=== PATIENT | female | born 1970 | race Caucasian/White ===

== ENCOUNTER 2017-02-07 23:40 | Emergency (ER) | payer SELFPAY ==
[2017-02-08 00:35] VITALS: BP 161/105
[2017-02-08] MEDS ORDERED: traMADol 50 MG Tab PO ONE (00:53)
--- NOTE | 2017-02-08 00:55 | EDM.PDOC ---
ED HPI GENERAL MEDICAL PROBLEM - General Chief Complaint: Lower Extremity Injury/Pain Stated Complaint: RIGHT FOOT/TOE INJURY Time Seen by Provider: 02/07/17 23:54 Source of Information: Reports: Patient, Family (), RN Notes Reviewed History Limitations: Reports: No Limitations - History of Present Illness INITIAL COMMENTS - FREE TEXT/NARRATIVE: The patient states that her stepped on her right fifth toe, while wearing steel toed boots, around 23:15. She was barefoot on a carpet at the time. She presents with pain to the right fifth toe, that radiates up her leg. She is otherwise uninjured. No prior right fifth toe injury. The patient's PCP is Dr. Agnes Puri. She does not have a relationship with an Orthopedic Surgeon. Right 5-Little toe Pain Score (Numeric/FACES): 8 - Related Data Allergies Allergy/AdvReac Type Severity Reaction Status Date / Time hydromorphone HCl Allergy Hives Verified 02/07/17 23:51 [From Dilaudid] meperidine HCl [From Demerol] Allergy Hives Verified 02/07/17 23:51 Home Meds: Home Meds traMADol [Ultram] 50 mg PO Q8H PRN #10 tablet 02/08/17 [Rx] Past Medical History Cardiovascular History: Reports: Hypertension (untreated) Gastrointestinal History: Reports: Bowel Obstruction, GERD Psychiatric History: Reports: Anxiety (untreated), Depression (untreated) Endocrine/Metabolic History: Reports: Obesity/BMI 30+ - Infectious Disease History Infectious Disease History: Reports: Chicken Pox - Past Surgical History GI Surgical History: Reports: Bariatric Procedure, Cholecystectomy, Hernia, Abdominal, Nadine Fundoplication, Other (See Below) (Exploratory laparotomy with lysis of adhesions) Female Surgical History: Reports: Hysterectomy Musculoskeletal Surgical History: Reports: Carpal Tunnel (right), Other (See Below) (Left foot fracture repair) Social & Family History - Tobacco Use Smoking Status *Q: Current Every Day Smoker Years of Tobacco use: 13 Packs/Tins Daily: 1.5 - Caffeine Use Caffeine Use: Reports: Coffee - Alcohol Use Alcohol Use History: Yes Days Per Week of Alcohol Use: 0 Number of Drinks Per Day: 0 Total Drinks Per Week: 0 Alcohol Use Frequency: Rarely - Recreational Drug Use Recreational Drug Use: No - Living Situation & Occupation Living situation: Reports: , with Spouse, with Family (Daughter) 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) Review of Systems - Review of Systems Review Of Systems: See Below Constitutional: Reports: No Symptoms Eyes: Reports: No Symptoms Ears: Reports: No Symptoms Nose: Reports: No Symptoms Mouth/Throat: Reports: No Symptoms Respiratory: Reports: No Symptoms Cardiovascular: Reports: No Symptoms GI/Abdominal: Reports: No Symptoms Genitourinary: Reports: No Symptoms Musculoskeletal: Reports: No Symptoms Skin: Reports: No Symptoms Neurological: Reports: No Symptoms Psychiatric: Reports: No Symptoms ED EXAM, GENERAL - Physical Exam Exam: See Below Exam Limited By: No Limitations General Appearance: Alert, WD/WN, No Apparent Distress, Mild Distress Extremities: Other (No visible abnormality to the right fifth toe, such as swelling, erythema, abrasion, or ecchymosis, when compared to the left. There is tenderness to palpation of the toe. Neurovascular status of the right foot is intact.) Course - Vital Signs Last Recorded V/S: Last Vital Signs Temp 36.2 C 02/07/17 23:45 Pulse 88 02/07/17 23:45 Resp 20 02/07/17 23:45 BP 161/105 H 02/07/17 23:45 Pulse Ox 100 02/07/17 23:45 - Orders/Labs/Meds Orders: Active Orders 24 hr Category Date Time Status Toes Fifth Digit Rt T9 [CR] Stat Exams 02/08/17 00:23 Taken DME for Discharge [COMM] Stat Oth 02/08/17 00:53 Ordered Meds: Medications Discontinued Medications Generic Name Dose Route Start Last Admin Trade Name Puma PRN Reason Stop Dose Admin Tramadol HCl 50 mg 02/08/17 00:53 02/08/17 01:04 Ultram PO 02/08/17 00:54 50 mg ONETIME ONE Administration - Re-Assessments/Exams Free Text/Narrative Re-Assessment/Exam: 02/08/17 00:50 4-view radiographs of the right fifth toe appears to demonstrate a minimally displaced mid-shaft fracture of the proximal phalanx. Formal read per the Radiologist pending. 02/08/17 00:55 X-ray results discussed with the patient and her . I will have her fifth toe maris taped to the fourth, and fit her for a postop shoe. She will receive tramadol, and I will refer her to Dr. Wahl for follow-up. Departure - Departure Time of Disposition: 00:56 Disposition: Home, Self-Care 01 Condition: Fair Clinical Impression: Fracture of fifth toe, right, closed - Discharge Information Prescriptions: traMADol [Ultram] 50 mg PO Q8H PRN #10 tablet PRN Reason: Pain (Severe 7-10) Instructions: Toe Fracture, [id number] Referrals: Agnes Puri DO [Primary Care Provider] - Brayan Wahl MD [Physician] - Forms: ED Department Discharge, ED Return to Work/School Form Additional Instructions: You were seen in the emergency room for right pinky toe pain, after your stepped on it. Workup in the ER included x-rays of your toe. The x-rays show that your toe is broken. Your toe has been maris taped, and you have been fitted for a postop shoe. Replace the maris tape every time you bathe. Make sure that you put some gauze or padding in between your toes, so that they do not chafe. Continue to use the postop shoe, so long as your toe is painful. Elevate and ice your right foot as much as possible for the next 48 hours. Take [id number] Tylenol as needed for pain. Take one tablet of the pain medicine tramadol up to every 8 hours, as needed for pain not relieved by Tylenol. If you take tramadol, do not drive for 12 hours afterwards. Tramadol may cause constipation, so consider taking a stool softener. Follow-up with the Orthopedic Surgeon Dr. Wahl as needed. If any other problems, please do not hesitate to return to the ER. - My Orders Last 24 Hours: My Active Orders 02/08/17 00:23 Toes Fifth Digit Rt T9 [CR] Stat 02/08/17 00:53 DME for Discharge [COMM] Stat - Assessment/Plan Last 24 Hours: My Active Orders 02/08/17 00:23 Toes Fifth Digit Rt T9 [CR] Stat 02/08/17 00:53 DME for Discharge [COMM] Stat
--- NOTE | 2017-02-08 07:17 | CR ---
Right fifth toe: Four views of the right fifth toe are obtained. Mildly angulated fracture is identified within the proximal phalanx of the right fifth digit. No additional fracture or other abnormality is seen. Impression: 1. Slightly angulated proximal phalanx fracture involving the right fifth toe. Diagnostic code #3
== END 2017-02-08 01:22 | disposition home or self-care (01) ==
LOC: JD.ED 23:40
DX: S92.511A Displaced fracture of proximal phalanx of right lesser toe(s), initial encounter for closed fracture (principal); I10 Essential (primary) hypertension; F17.210 Nicotine dependence, cigarettes, uncomplicated; Z90.49 Acquired absence of other specified parts of digestive tract; Z88.5 Allergy status to narcotic agent; W51.XXXA Accidental striking against or bumped into by another person, initial encounter
CPT/HCPCS: 73660; 99283; A9270

== ENCOUNTER 2017-02-12 00:56 | Emergency (ER) | payer SELFPAY ==
[2017-02-12 01:08] VITALS: BP 156/107
--- NOTE | 2017-02-12 01:41 | EDM.PDOC ---
ED HPI GENERAL MEDICAL PROBLEM - General Chief Complaint: Lower Extremity Injury/Pain Stated Complaint: INJURED RIGHT FOOT Time Seen by Provider: 02/12/17 01:06 Source of Information: Reports: Patient, Family (), Old Records, RN Notes Reviewed History Limitations: Reports: No Limitations - History of Present Illness INITIAL COMMENTS - FREE TEXT/NARRATIVE: The patient was seen by me in this ED on 02/08/2017 after her stepped on her right fifth toe. X-rays showed that there was a proximal phalanx fracture. Her toe was maris taped, she was placed into a postop shoe, prescribed tramadol , and referred to Dr. Wahl. She states that she has been continuing to maris tape her toe and use the postop shoe, however, she has not yet made arrangements to follow-up with Dr. Wahl. She states that earlier tonight her garage door accidentally came down onto the dorsum of her right foot. She now presents with pain along the lateral aspect of her foot. She is otherwise uninjured. Right Feet Pain Score (Numeric/FACES): 7 - Related Data Allergies Allergy/AdvReac Type Severity Reaction Status Date / Time hydromorphone HCl Allergy Hives Verified 02/12/17 01:05 [From Dilaudid] meperidine HCl [From Demerol] Allergy Hives Verified 02/12/17 01:05 Home Meds: Home Meds traMADol [Ultram] 50 mg PO Q8H PRN #10 tablet 02/08/17 [Rx] Past Medical History Cardiovascular History: Reports: Hypertension (untreated) Gastrointestinal History: Reports: Bowel Obstruction, GERD Musculoskeletal History: Reports: Fracture (Left foot, Right 5th toe) Psychiatric History: Reports: Anxiety (untreated), Depression (untreated) Endocrine/Metabolic History: Reports: Obesity/BMI 30+ - Infectious Disease History Infectious Disease History: Reports: Chicken Pox - Past Surgical History GI Surgical History: Reports: Bariatric Procedure, Cholecystectomy, Hernia, Abdominal, Nadine Fundoplication, Other (See Below) (Exploratory laparotomy with lysis of adhesions) Female Surgical History: Reports: Hysterectomy Musculoskeletal Surgical History: Reports: Carpal Tunnel (right), Other (See Below) (Left foot fracture repair) Social & Family History - Tobacco Use Smoking Status *Q: Current Every Day Smoker Years of Tobacco use: 13 Packs/Tins Daily: 1.5 - Caffeine Use Caffeine Use: Reports: Coffee - Alcohol Use Alcohol Use History: Yes Alcohol Use Frequency: Rarely - Recreational Drug Use Recreational Drug Use: No - Living Situation & Occupation Living situation: Reports: , with Spouse, with Family (Daughter) 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) Review of Systems - Review of Systems Review Of Systems: See Below Constitutional: Reports: No Symptoms Eyes: Reports: No Symptoms Ears: Reports: No Symptoms Nose: Reports: No Symptoms Mouth/Throat: Reports: No Symptoms Respiratory: Reports: No Symptoms Cardiovascular: Reports: No Symptoms GI/Abdominal: Reports: No Symptoms Genitourinary: Reports: No Symptoms Musculoskeletal: Reports: No Symptoms Skin: Reports: No Symptoms Neurological: Reports: No Symptoms Psychiatric: Reports: No Symptoms ED EXAM, GENERAL - Physical Exam Exam: See Below Exam Limited By: No Limitations General Appearance: Alert, WD/WN, No Apparent Distress Extremities: Other (No visible abnormality to the right foot, such as swelling, erythema, ecchymosis, or abrasion, with the exception of subtle swelling to the right fifth toe. Mild tenderness to palpation of the lateral foot. Neurovascular status of the right foot is intact.) Course - Vital Signs Last Recorded V/S: Last Vital Signs Temp 36.6 C 02/12/17 01:06 Pulse 96 02/12/17 01:06 Resp 18 02/12/17 01:06 BP 156/107 H 02/12/17 01:06 Pulse Ox 97 02/12/17 01:06 - Orders/Labs/Meds Orders: Active Orders 24 hr Category Date Time Status Foot Comp Min 3V Rt [CR] Stat Exams 02/12/17 01:08 Taken - Re-Assessments/Exams Free Text/Narrative Re-Assessment/Exam: 02/12/17 01:38 4-view radiographs of the right foot appear to redemonstrate the previous he diagnosed right fifth toe fracture no additional foot fractures identified. Formal read per the Radiologist pending. X-ray results discussed with the patient and her . I will discharge the patient home with a recommendation that she continue to maris tape her right fifth toe, where the postop shoe, and follow-up with Dr. Wahl as needed. I am recommending ibuprofen as needed for discomfort. Departure - Departure Time of Disposition: 01:39 Disposition: Home, Self-Care 01 Condition: Good Clinical Impression: Contusion of right foot - Discharge Information Referrals: Agnes Puri DO [Primary Care Provider] - Brayan Wahl MD [Physician] - Forms: ED Department Discharge Additional Instructions: You were seen in the emergency room after a garage door came down on your right foot. X-rays of your foot redemonstrate your broken pinky toe, but do not show any new fractures. As before, we recommend that you maris tape your right pinky toe to your right fourth toe, making sure that you put some gauze in between the toes. Continue to wear the postop shoe. You may take [id number] ibuprofen 3-4 (600-800 mg) every 8 hours, with food, as needed for discomfort. Follow-up with the Orthopedic Surgeon Dr. Wahl as needed. If any other problems, please do not hesitate to return to the ER. - My Orders Last 24 Hours: My Active Orders 02/12/17 01:08 Foot Comp Min 3V Rt [CR] Stat - Assessment/Plan Last 24 Hours: My Active Orders 02/12/17 01:08 Foot Comp Min 3V Rt [CR] Stat
--- NOTE | 2017-02-12 07:44 | CR ---
Right foot: Four views of the right foot were obtained. Comparison: Previous right fifth toe study of 02/08/17. Plantar spur is seen. Fracture is again identified within the proximal phalanx of the fifth digit. Alignment is stable. No additional fracture or other bony abnormality is seen. Impression: 1. Stable fifth toe fracture. Plantar spur. 2. No additional abnormality is identified on right foot exam. Diagnostic code #3
== END 2017-02-12 01:57 | disposition home or self-care (01) ==
LOC: JD.ED 00:56
DX: S90.31XA Contusion of right foot, initial encounter (principal); I10 Essential (primary) hypertension; K21.9 Gastro-esophageal reflux disease without esophagitis; E66.9 Obesity, unspecified; F17.210 Nicotine dependence, cigarettes, uncomplicated; Z88.5 Allergy status to narcotic agent; Z90.710 Acquired absence of both cervix and uterus; Z90.49 Acquired absence of other specified parts of digestive tract; Z68.42 Body mass index [BMI] 45.0-49.9, adult; Z88.8 Allergy status to other drugs, medicaments and biological substances; W20.8XXA Other cause of strike by thrown, projected or falling object, initial encounter
CPT/HCPCS: 73630-26-RT; 73630-RT; 99282; 99283

== ENCOUNTER 2017-03-18 21:10 | Emergency (ER) | payer SELFPAY ==
--- NOTE | 2017-03-18 22:03 | EDM.PDOC ---
ED HPI GENERAL MEDICAL PROBLEM - General Chief Complaint: Chest Pain Stated Complaint: HIGH BLOOD PRESSURE/TIGHTNESS IN CHEST Time Seen by Provider: 03/18/17 22:02 - History of Present Illness INITIAL COMMENTS - FREE TEXT/NARRATIVE: 47-year-old female presents emergency room not feeling well she has some intermittent chest tightness. This is been going on for close to 2 weeks she has no energy her blood pressures been higher than normal with systolics in the 140s and 150s she's noticed lower extremity edema. The patient needs to be treated for hypertension but is no longer taking any medications. She has intermittent chest pain that usually brief and sharp usually triggered by deep breathing. The patient has not noticed any palpitations. The patient had gastric bypass surgery many years ago. She is still morbidly obese but has never been diagnosed with diabetes. She does not take aspirin. Her chest pain usually starts behind the left breast is very transient and shoots into her back last a few seconds. 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) Other OB/BYN History: breast reduction Musculoskeletal History: Reports: Fracture Psychiatric History: Reports: Anxiety, Depression Endocrine/Metabolic History: Reports: Obesity/BMI 30+ - Infectious Disease History Infectious Disease History: Reports: Chicken Pox - Past Surgical History GI Surgical History: Reports: Bariatric Procedure, Cholecystectomy, Hernia, Abdominal, Nadine Fundoplication, Other (See Below) Female Surgical History: Reports: Hysterectomy Musculoskeletal Surgical History: Reports: Carpal Tunnel, Other (See Below) Social & Family History - Tobacco Use Smoking Status *Q: Former Smoker Years of Tobacco use: 13 Packs/Tins Daily: 1.5 Used Tobacco, but Quit: Yes Month Tobacco Last Used: 01/2017 Second Hand Smoke Exposure: No - Caffeine Use Caffeine Use: Reports: None - Alcohol Use Days Per Week of Alcohol Use: 0 Number of Drinks Per Day: 0 Total Drinks Per Week: 0 - Recreational Drug Use Recreational Drug Use: No Drug Use in Last 12 Months: No - Living Situation & Occupation Living situation: Reports: , with Spouse, with Family (Daughter) 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 Denies: Fever, Chills HEENT: Reports: No Symptoms Respiratory: Reports: No Symptoms Cardiovascular: Reports: Chest Pain GI/Abdominal: Reports: No Symptoms : Reports: No Symptoms Neurological: Reports: No Symptoms ED EXAM, GENERAL - Physical Exam Exam: See Below Exam Limited By: No Limitations General Appearance: Alert, No Apparent Distress Head: Atraumatic, Normocephalic Neck: Normal Inspection, Supple, Non-Tender, Full Range of Motion. No: Lymphadenopathy (L), Lymphadenopathy (R) Respiratory/Chest: No Respiratory Distress, Lungs Clear, Normal Breath Sounds Cardiovascular: Regular Rate, Rhythm, No Murmur, Other (1-2+ pitting edema in her lower extremities) GI/Abdominal: Normal Bowel Sounds, Soft, Non-Tender, No Organomegaly, No Distention, No Abnormal Bruit, No Mass, Other (Obesity limits exam) Back Exam: Normal Inspection. No: CVA Tenderness (L), CVA Tenderness (R) Extremities: Normal Inspection, Other (1-2+ pitting edema) Neurological: Alert, Oriented, Normal Cognition Course - Vital Signs Last Recorded V/S: Last Vital Signs Temp 36.2 C 03/18/17 21:20 Pulse 77 03/18/17 22:36 Resp 20 03/18/17 21:20 BP 156/106 H 03/18/17 22:36 Pulse Ox 99 03/18/17 21:20 - Orders/Labs/Meds Orders: Active Orders 24 hr Category Date Time Status EKG Documentation Completion [RC] STAT Care 03/18/17 22:24 Active Chest 1V Frontal [CR] Stat Exams 03/18/17 22:23 Taken Sodium Chloride 0.9% [Normal Saline] 1,000 ml Med 03/18/17 22:30 Active IV ASDIRECTED Medication Orders Sodium Chloride (Normal Saline) 1,000 mls @ 50 mls/hr IV ASDIRECTED ARNAV Last Admin: 03/18/17 22:40 Dose: 50 mls/hr Labs: Laboratory Tests 03/18/17 03/18/17 03/18/17 Range/Units 21:25 21:25 21:25 WBC 7.58 (3.98-10.04) K/mm3 RBC 3.94 L (3.98-5.22) M/mm3 Hgb 11.1 L (11.2-15.7) gm/L Hct 33.9 L (34.1-44.9) % MCV 86.0 (79.4-94.8) fl MCH 28.2 (25.6-32.2) pg MCHC 32.7 (32.2-35.5) g/dl RDW Std Deviation 45.5 (36.4-46.3) fL Plt Count 289 (182-369) K/mm3 MPV 10.4 (9.4-12.3) fl Neutrophils % (Manual) 61 H (40-60) % Band Neutrophils % 0 (0-10) % Lymphocytes % (Manual) 30 (20-40) % Atypical Lymphs % 0 % Monocytes % (Manual) 7 (2-10) % Eosinophils % (Manual) 2 (0.7-5.8) % Basophils % (Manual) 0 L (0.1-1.2) Platelet Estimate Adequate RBC Morph Comment Normal PT 10.3 (8.0-13.0) SECONDS INR 0.95 APTT 25 (22-36) SECONDS Sodium 138 (136-145) mEq/L Potassium 4.0 (3.5-5.1) mEq/L Chloride 105 (98-107) mEq/L Carbon Dioxide 27 (21-32) mEq/L Anion Gap 10.0 (5-15) BUN 10 (7-18) mg/dL Creatinine 0.7 (0.55-1.02) mg/dL Est Cr Clr Drug Dosing 86.72 mL/min Estimated GFR (MDRD) > 60 (>60) mL/min BUN/Creatinine Ratio 14.3 (14-18) Glucose 84 (74-106) mg/dL Calcium 8.9 (8.5-10.1) mg/dL Total Bilirubin 0.2 (0.2-1.0) mg/dL AST 24 (15-37) U/L ALT 21 (14-59) U/L Alkaline Phosphatase 80 (46-116) U/L Troponin I 0.222 H* (0.00-0.056) ng/mL NT-Pro-B Natriuret Pep 289 H (0-125) pg/mL Total Protein 7.1 (6.4-8.2) g/dl Albumin 3.7 (3.4-5.0) g/dl Globulin 3.4 gm/dL Albumin/Globulin Ratio 1.1 (1-2) Meds: Medications Generic Name Dose Route Start Last Admin Trade Name Freq PRN Reason Stop Dose Admin Sodium Chloride 1,000 mls @ 50 mls/hr 03/18/17 22:30 03/18/17 22:40 Normal Saline IV 50 mls/hr ASDIRECTED ARNAV Administration Discontinued Medications Generic Name Dose Route Start Last Admin Trade Name Freq PRN Reason Stop Dose Admin Aspirin 324 mg 03/18/17 22:25 03/18/17 22:36 Aspirin PO 03/18/17 22:26 324 mg ONETIME ONE Administration Enoxaparin Sodium 120 mg 03/18/17 23:46 03/18/17 23:59 Lovenox SUBCUT 03/18/17 23:47 120 mg ONETIME ONE Administration Metoprolol Tartrate 25 mg 03/18/17 22:25 03/18/17 22:36 Lopressor PO 03/18/17 22:26 25 mg ONETIME ONE Administration Nitroglycerin 1 gm 03/19/17 00:07 03/19/17 00:22 Nitro-Bid 2% TOP 03/19/17 00:08 1 gm ONETIME ONE Administration Nitroglycerin 1 gm 03/19/17 00:58 03/19/17 01:05 Nitro-Bid 2% TOP 03/19/17 00:59 1 gm ONETIME ONE Administration - Re-Assessments/Exams Free Text/Narrative Re-Assessment/Exam: 03/19/17 00:25 Labs reviewed troponin came back elevated at 0.22-4 times are printed normal this is suspicious of a past [place] BNP is elevated at just under 300 chest x-ray shows a borderline enlarged heart early or mild vascular congestion versus body habitus. Upon receiving the troponin the patient was started on Lovenox and metoprolol will also start her on nitro paste. Patient's case discussed with , hospitalist at [facility] in [place] who accepts the patient in transfer Departure - Departure Time of Disposition: 00:27 Disposition: DC/Tfer to Acute Hospital 02 Reason for Transfer *Q: Other Clinical Impression: Acute coronary syndrome, NSTEMI (non-ST elevated myocardial infarction) Referrals: Agnes Puri DO [Primary Care Provider] - Forms: ED Department Discharge - My Orders Last 24 Hours: My Active Orders 03/18/17 22:23 Chest 1V Frontal [CR] Stat 03/18/17 22:24 EKG Documentation Completion [RC] STAT 03/18/17 22:30 Sodium Chloride 0.9% [Normal Saline] 1,000 ml IV ASDIRECTED - Assessment/Plan Last 24 Hours: My Active Orders 03/18/17 22:23 Chest 1V Frontal [CR] Stat 03/18/17 22:24 EKG Documentation Completion [RC] STAT 03/18/17 22:30 Sodium Chloride 0.9% [Normal Saline] 1,000 ml IV ASDIRECTED
[2017-03-18] MEDS ORDERED: Metoprolol Tartrate 25 MG Tab PO ONE (22:25)
[2017-03-18] MEDS ORDERED: Aspirin 81 MG Tab.Chew PO ONE (22:25)
[2017-03-18] MEDS ORDERED: Sodium Chloride 0.9% 1,000 ML IV SCH (22:30)
[2017-03-18 22:37] VITALS: BP 156/106
[2017-03-18] MEDS ORDERED: Enoxaparin 120 MG/0.8 ML Syringe SUBCUT ONE (23:46)
[2017-03-19] MEDS ORDERED: Nitroglycerin 2% Oint 1 GM UD Packet TOP ONE ×2 (00:07→00:58)
--- NOTE | 2017-03-19 07:19 | CR ---
Chest: Portable view of the chest was obtained. Comparison: Previous chest x-ray of 09/20/15. Heart size and mediastinum are within normal limits. Lungs are clear. No acute infiltrates are seen. Bony structures are grossly intact. Surgical clips are noted within the upper abdomen. Impression: 1. Incidental findings. Nothing acute is identified on portable chest x-ray. Diagnostic code #2
== END 2017-03-19 01:25 ==
LOC: JD.ED 21:10
DX: I21.4 Non-ST elevation (NSTEMI) myocardial infarction (principal); I24.9 Acute ischemic heart disease, unspecified; I10 Essential (primary) hypertension; K21.9 Gastro-esophageal reflux disease without esophagitis; F32.9 Major depressive disorder, single episode, unspecified; E66.9 Obesity, unspecified; Z90.49 Acquired absence of other specified parts of digestive tract; Z90.710 Acquired absence of both cervix and uterus; Z98.890 Other specified postprocedural states; Z98.84 Bariatric surgery status; Z87.891 Personal history of nicotine dependence; Z88.5 Allergy status to narcotic agent; Z88.6 Allergy status to analgesic agent
CPT/HCPCS: 36415; 71010; 80053; 83880; 84484; 85025; 85610; 85730; 93005; 96360; 96361; 96372; 99285; A9270; J1650; J7040

== ENCOUNTER 2017-04-28 00:52 | Emergency (ER) | payer SELFPAY ==
[2017-04-28 01:02] VITALS: BP 147/95
--- NOTE | 2017-04-28 01:30 | EDM.PDOC ---
ED HPI GENERAL MEDICAL PROBLEM - General Chief Complaint: General Stated Complaint: VEIN BURST IN RIGHT LEG Time Seen by Provider: 04/28/17 01:05 Source of Information: Reports: Patient, RN Notes Reviewed History Limitations: Reports: No Limitations - History of Present Illness INITIAL COMMENTS - FREE TEXT/NARRATIVE: The patient states that she has a long history of varicose veins to her bilateral lower extremities. She states that she was picking at an itchy spot on the lateral aspect of her right thigh without thinking, when she apparently lacerated one of the varicose veins, and it bled, around 00:30. She states that she was unable to get it to stop, however, here in the ED, the wound is no longer bleeding. The patient is on aspirin, but no other anticoagulants. The patient states that she had a similar occurrence this past summer, she believes in the same area. She states that the wound required suturing to stop the bleeding. The patient's PCP is Dr. Agnes Puri. - Related Data Allergies Allergy/AdvReac Type Severity Reaction Status Date / Time hydromorphone HCl Allergy Hives Verified 04/28/17 01:02 [From Dilaudid] meperidine HCl [From Demerol] Allergy Hives Verified 04/28/17 01:02 Past Medical History Cardiovascular History: Reports: CAD, Hypertension, [place] Gastrointestinal History: Reports: Bowel Obstruction, GERD Musculoskeletal History: Reports: Fracture (left foot, right 5th toe) Psychiatric History: Reports: Anxiety (untreated), Depression (untreated) Endocrine/Metabolic History: Reports: Obesity/BMI 30+ - Infectious Disease History Infectious Disease History: Reports: Chicken Pox - Past Surgical History Cardiovascular Surgical History: Reports: Other (See Below) (Coronary angiogram February 2017) GI Surgical History: Reports: Bariatric Procedure (gastric bypass 2000), Cholecystectomy, Hernia, Abdominal, Nadine Fundoplication, Other (See Below) ( Exploratory laparoscopy with lysis of adhesions) Female Surgical History: Reports: Hysterectomy Musculoskeletal Surgical History: Reports: Carpal Tunnel (right), Other (See Below) (Left foot fracture) Social & Family History - Tobacco Use Smoking Status *Q: Former Smoker Years of Tobacco use: 24 Packs/Tins Daily: 1.5 Month Tobacco Last Used: Quit February 2017 Second Hand Smoke Exposure: No - Caffeine Use Caffeine Use: Reports: None - Alcohol Use Alcohol Use History: Yes Alcohol Use Frequency: Rarely - Recreational Drug Use Recreational Drug Use: No - Living Situation & Occupation Living situation: Reports: , with Spouse, with Family (Daughter) 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 GENERAL - Review of Systems Review Of Systems: See Below Constitutional: Reports: No Symptoms HEENT: Reports: No Symptoms Respiratory: Reports: No Symptoms Cardiovascular: Reports: No Symptoms Endocrine: Reports: No Symptoms GI/Abdominal: Reports: No Symptoms : Reports: No Symptoms Musculoskeletal: Reports: No Symptoms Skin: Reports: No Symptoms Neurological: Reports: No Symptoms Psychiatric: Reports: No Symptoms Hematologic/Lymphatic: Reports: No Symptoms Immunologic: Reports: No Symptoms ED EXAM, GENERAL - Physical Exam Exam: See Below Exam Limited By: No Limitations General Appearance: Alert, WD/WN, No Apparent Distress Skin Exam: Warm, Dry, Normal Color, No Rash, Other (Numerous varicose veins to the bilateral lower extremities. 2 small erythematous lesions to the lateral aspect of the right mid-thigh, not currently bleeding.) Course - Vital Signs Last Recorded V/S: Last Vital Signs Temp 36.0 C 04/28/17 00:58 Pulse 80 04/28/17 00:58 Resp 18 04/28/17 00:58 BP 147/95 H 04/28/17 00:58 Pulse Ox 100 04/28/17 00:58 - Re-Assessments/Exams Free Text/Narrative Re-Assessment/Exam: 04/28/17 01:25 The patient has numerous superficial varicose veins to her bilateral lower extremities. She apparently nicked one while scratching her thigh earlier tonight. The bleeding has stopped, and we were not able to cause it to restart, even when the patient flexed her right knee, putting some tension on her right thigh. I believe conservative management would be best in this case. I will have the nurse apply a pressure dressing, which I would like patient to keep overnight, then she can remove it in the morning when she bathes. Departure - Departure Time of Disposition: 01:27 Disposition: Home, Self-Care 01 Condition: Good Clinical Impression: Bleeding from varicose veins of right lower extremity - Discharge Information Instructions: Bleeding Varicose Veins Referrals: Agnes Puri DO [Primary Care Provider] - Forms: ED Department Discharge Additional Instructions: You were seen in the emergency room after accidentally cutting a varicose vein on your right thigh when you scratched it. The bleeding had stopped on its own, therefore no further treatment was required. A pressure dressing has been applied to the wound. Keep it on overnight. It can be removed when you bathe in the morning. If any other problems, please do not hesitate to return to the ER.
== END 2017-04-28 01:44 | disposition home or self-care (01) ==
LOC: JD.ED 00:52
DX: I83.891 Varicose veins of right lower extremity with other complications (principal); I10 Essential (primary) hypertension; I25.2 Old myocardial infarction; K21.9 Gastro-esophageal reflux disease without esophagitis; E66.9 Obesity, unspecified; Z88.5 Allergy status to narcotic agent; Z88.8 Allergy status to other drugs, medicaments and biological substances; Z87.891 Personal history of nicotine dependence; Z68.42 Body mass index [BMI] 45.0-49.9, adult
CPT/HCPCS: 99283

== ENCOUNTER 2017-05-05 02:15 | Emergency (ER) | payer SELFPAY ==
[2017-05-05 02:28] VITALS: BP 133/96
[2017-05-05] MEDS ORDERED: Lidocaine/EPINEPHrine/Tetracaine Soln 1 ML TOP ONE (02:41)
--- NOTE | 2017-05-05 02:54 | EDM.PDOC ---
ED HPI GENERAL MEDICAL PROBLEM - General Chief Complaint: Lower Extremity Injury/Pain Stated Complaint: POSS VEIN RUPTURE ON LEG Time Seen by Provider: 05/05/17 02:34 Source of Information: Reports: Patient History Limitations: Reports: No Limitations - History of Present Illness INITIAL COMMENTS - FREE TEXT/NARRATIVE: This is a 47-year-old female. She has multiple varicose veins of her lower extremities. About 7 days ago she came in here with a bleeding varicose vein that essentially stopped by the time she got here but they put her pressure dressing over it. She says she took the dressing off and the vein started bleeding again around 2 AM so she comes back to the ER. She is now follow-up with her family doctor she's not seen a surgeon for varicose veins. She denies any other acute symptoms she does take aspirin daily but no other anticoagulants. Right Leg Pain Score (Numeric/FACES): 3 - Related Data Allergies Allergy/AdvReac Type Severity Reaction Status Date / Time hydromorphone HCl Allergy Hives Verified 05/05/17 02:21 [From Dilaudid] meperidine HCl [From Demerol] Allergy Hives Verified 05/05/17 02:21 Home Meds: Home Meds Albuterol [Proventil HFA] 2 puff INH DAILY PRN 05/05/17 [History] Aspirin 81 mg PO DAILY 05/05/17 [History] LORazepam 1 mg PO DAILY 05/05/17 [History] Lisinopril 20 mg PO DAILY 05/05/17 [History] Meloxicam 15 mg PO DAILY 05/05/17 [History] Metoprolol Succinate [Toprol XL] 25 mg PO DAILY 05/05/17 [History] Sertraline [Zoloft] 100 mg PO DAILY 05/05/17 [History] atorvaSTATin [Lipitor] 40 mg PO BEDTIME 05/05/17 [History] Past Medical History - Past Health History Medical/Surgical History: Denies Medical/Surgical History Cardiovascular History: Reports: CAD, Hypertension, [place] Gastrointestinal History: Reports: Bowel Obstruction, GERD 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) Other OB/BYN History: breast reduction Musculoskeletal History: Reports: Fracture Psychiatric History: Reports: Anxiety, Depression Endocrine/Metabolic History: Reports: Obesity/BMI 30+ - Infectious Disease History Infectious Disease History: Reports: Chicken Pox - Past Surgical History Cardiovascular Surgical History: Reports: Other (See Below) GI Surgical History: Reports: Bariatric Procedure, Cholecystectomy, Hernia, Abdominal, Nadine Fundoplication, Other (See Below) Female Surgical History: Reports: Hysterectomy Musculoskeletal Surgical History: Reports: Carpal Tunnel, Other (See Below) Social & Family History - Tobacco Use Smoking Status *Q: Former Smoker Years of Tobacco use: 24 Packs/Tins Daily: 1.5 Used Tobacco, but Quit: Yes Month Tobacco Last Used: february Second Hand Smoke Exposure: No - Caffeine Use Caffeine Use: Reports: Coffee, Soda - Alcohol Use Days Per Week of Alcohol Use: 0 Number of Drinks Per Day: 0 Total Drinks Per Week: 0 - Recreational Drug Use Recreational Drug Use: No Drug Use in Last 12 Months: No - Living Situation & Occupation Living situation: Reports: , with Spouse, with Family (Daughter) 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) Review of Systems - Review of Systems Review Of Systems: See Below Constitutional: Denies: Chills, Fever Eyes: Reports: No Symptoms Ears: Reports: No Symptoms Nose: Reports: No Symptoms Mouth/Throat: Reports: No Symptoms Respiratory: Reports: No Symptoms Cardiovascular: Reports: No Symptoms GI/Abdominal: Reports: No Symptoms Genitourinary: Reports: No Symptoms Musculoskeletal: Reports: No Symptoms Skin: Reports: Other (As per history of present illness) Neurological: Reports: No Symptoms Psychiatric: Reports: No Symptoms ED EXAM, GENERAL - Physical Exam Exam: See Below Exam Limited By: No Limitations General Appearance: Alert, WD/WN, No Apparent Distress Ears: Normal External Exam Nose: Normal Inspection Throat/Mouth: Normal Inspection Head: Normocephalic Neck: Supple Respiratory/Chest: No Respiratory Distress GI/Abdominal: Other (Morbidly obese) Back Exam: Full Range of Motion Extremities: Other (On her right lateral mid thigh is the varicose vein in question that is bleeding or was bleeding. The bleeding is stopped at this time and she has a small coagulant of blood over the opening) Neurological: Alert, Oriented Psychiatric: Normal Affect, Normal Mood Skin Exam: Warm, Dry ED TRAUMA EXTREMITY PROCEDURES - Additional/Other Procedure(s) Other (Free Text) Procedure(s): On the patient's right lateral mid thigh on the 2 areas of the bleeding varicose vein. We placed let over those 2 wounds. Then I cleaned 3 times with Betadine swabs. I injected lidocaine 1% with epinephrine and blanched out the vein so I could tell which ones connected to the bleeding spots. Then I put in 3 deep sutures ligating off the veins to these 2 bleeding sites with 3-0 Prolene. The patient tolerated the procedure well there was no bleeding after the procedure, she was cleaned and a dressing was placed over that area. She needs to have the sutures out in 7 days and I'll refer her to a surgeon. No suture tray was needed with this procedure. Course - Vital Signs Last Recorded V/S: Last Vital Signs Temp 97.8 F 05/05/17 02:22 Pulse 93 05/05/17 02:22 Resp 18 05/05/17 02:22 BP 133/96 H 05/05/17 02:22 Pulse Ox 100 05/05/17 02:22 - Orders/Labs/Meds Meds: Medications Discontinued Medications Generic Name Dose Route Start Last Admin Trade Name Puma PRN Reason Stop Dose Admin Lidocaine/Epinephrine 20 ml 05/05/17 03:08 05/05/17 03:22 Xylocaine 1% With Epinephrine 1:100,000 INJECT 05/05/17 03:09 20 ml ONETIME ONE Administration Lidocaine/Tetracaine 1 ml 05/05/17 02:41 05/05/17 02:48 Let Soln TOP 05/05/17 02:42 1 ml ONETIME ONE Administration - Re-Assessments/Exams Free Text/Narrative Re-Assessment/Exam: 05/05/17 03:25 Patient tolerated the procedure well there was no bleeding after the surgical ligation sutures were placed 3 Departure - Departure Time of Disposition: 03:25 Disposition: Home, Self-Care 01 Condition: Good Clinical Impression: Bleeding from varicose veins of right lower extremity - Discharge Information Referrals: Agnes Puri DO [Primary Care Provider] - Raffi Nunez MD [Physician] - Forms: ED Department Discharge Additional Instructions: Keep the sutures covered when you're at work and at nighttime when sleeping, follow-up with Dr. Nunez by calling his office on Saturday and setting up an appointment approximately 7 days from Saturday to have the sutures removed and for evaluation of the other varicose veins that you have, return to the ER if needed
[2017-05-05] MEDS ORDERED: Lidocaine 1% with EPINEPHrine 1:100,000 20 ML MDV INJECT ONE (03:08)
== END 2017-05-05 03:30 | disposition home or self-care (01) ==
LOC: JD.ED 02:15
DX: I82.401 Acute embolism and thrombosis of unspecified deep veins of right lower extremity (principal); I10 Essential (primary) hypertension; Z88.5 Allergy status to narcotic agent; Z88.8 Allergy status to other drugs, medicaments and biological substances; Z79.82 Long term (current) use of aspirin; Z79.899 Other long term (current) drug therapy; Z87.891 Personal history of nicotine dependence
CPT/HCPCS: 12001; 99283; A9270

== ENCOUNTER 2017-05-12 11:09 | Emergency (ER) | payer SELFPAY ==
[2017-05-12 11:16] VITALS: BP 144/86
[2017-05-12] MEDS ORDERED: diphenhydrAMINE 50 MG/ML SDV IM ONE (11:43)
[2017-05-12] MEDS ORDERED: Ketorolac 30 MG/ML SDV IM ONE (11:43)
--- NOTE | 2017-05-12 12:33 | EDM.PDOC ---
ED HPI GENERAL MEDICAL PROBLEM - General Chief Complaint: ENT Problem Stated Complaint: EYE SWELLING Time Seen by Provider: 05/12/17 11:52 Source of Information: Reports: Patient History Limitations: Reports: No Limitations - History of Present Illness INITIAL COMMENTS - FREE TEXT/NARRATIVE: 47 year old female presents for evaluation and treatment of bilateral eye swelling. Symptoms started about 1 hours prior to arrival in the ER. Patient presented to the walk-in clinic where she was instructed to come to the ER for further care. Patient reports pressures behind her eyes but states her eyes themselves don't hurt. Patient reports blurry vision but no double vision. Patient states she is experiencing headaches. No nausea or vomiting. She also reports a dry, scratchy throat but denies any additional allergy symptoms. Patient is suppose to wear glasses but does not have them today. Does not wear contacts. Patient reports she took aspirin today for pain relief. Bilateral Eye Pain Score (Numeric/FACES): 3 - Related Data Allergies Allergy/AdvReac Type Severity Reaction Status Date / Time hydromorphone HCl Allergy Hives Verified 05/12/17 11:16 [From Dilaudid] meperidine HCl [From Demerol] Allergy Hives Verified 05/12/17 11:16 Home Meds: Home Meds Albuterol [Proventil HFA] 2 puff INH DAILY PRN 05/05/17 [History] Aspirin 81 mg PO DAILY 05/05/17 [History] LORazepam 1 mg PO DAILY 05/05/17 [History] Lisinopril 20 mg PO DAILY 05/05/17 [History] Meloxicam 15 mg PO DAILY 05/05/17 [History] Metoprolol Succinate [Toprol XL] 25 mg PO DAILY 05/05/17 [History] Sertraline [Zoloft] 100 mg PO DAILY 05/05/17 [History] Cephalexin [IJD: Cephalexin] 500 mg PO .EVERY 8 HOURS #21 cap 05/12/17 [Rx] Olopatadine HCl [Pataday] 2.5 ml EYEBOTH DAILY #1 bottle 05/12/17 [Rx] Past Medical History - Past Health History Medical/Surgical History: Denies Medical/Surgical History Cardiovascular History: Reports: CAD, Hypertension, [place] Gastrointestinal History: Reports: Bowel Obstruction, GERD 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) Other OB/BYN History: breast reduction Musculoskeletal History: Reports: Fracture Psychiatric History: Reports: Anxiety, Depression Endocrine/Metabolic History: Reports: Obesity/BMI 30+ - Infectious Disease History Infectious Disease History: Reports: Chicken Pox - Past Surgical History Cardiovascular Surgical History: Reports: Other (See Below) GI Surgical History: Reports: Bariatric Procedure, Cholecystectomy, Hernia, Abdominal, Nadine Fundoplication, Other (See Below) Female Surgical History: Reports: Hysterectomy Musculoskeletal Surgical History: Reports: Carpal Tunnel, Other (See Below) Social & Family History - Family History Family Medical History: Noncontributory - Tobacco Use Smoking Status *Q: Never Smoker Years of Tobacco use: 24 Packs/Tins Daily: 1.5 Used Tobacco, but Quit: Yes Month Tobacco Last Used: february Second Hand Smoke Exposure: No - Caffeine Use Caffeine Use: Reports: Soda - Alcohol Use Days Per Week of Alcohol Use: 0 Number of Drinks Per Day: 0 Total Drinks Per Week: 0 - Recreational Drug Use Recreational Drug Use: No Drug Use in Last 12 Months: No - Living Situation & Occupation Living situation: Reports: , with Spouse, with Family (Daughter) 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 Denies: Eye Pain (reports pain behind the eyes) GI/Abdominal: Denies: Nausea, Vomiting Neurological: Reports: Headache ED EXAM, ENT - Physical Exam Exam: See Below Exam Limited By: No Limitations General Appearance: Alert, WD/WN, No Apparent Distress Eye Exam: Bilateral Eye: Conjunctival Injection, EOMI, PERRL, Vision Changes ( patient reports she can only read the "E" at the top of the vision chart, reports worsening blurry vision, normally wears glasses and did not wear them today; patient drove herslef to the ER), Other (eyes examined with fluorcein and the slit lamp; no corneal abrasions identified. sclear appear slightly swollen; upper and lower lids slight swollen, mild conjunctival injection bilaterally; IOPs: OS: 10, OD: 12; no foreign bodies identified on exam) Ears: Normal External Exam, Normal Canal, Normal TMs Nose: Normal Inspection Mouth/Throat: Normal Inspection, Normal Lips, Normal Oropharynx Respiratory/Chest: No Respiratory Distress, Lungs Clear, Normal Breath Sounds Cardiovascular: Normal Peripheral Pulses, Regular Rate, Rhythm Neurological: Alert, Oriented Psychiatric: Normal Affect, Normal Mood Skin: Warm, Dry, Normal Color, Erythema (arielle has approximately a 8cm in diameter area of erythema and increased warmth to the right lateral proximal leg ; this surrounds an area that was recently sutureed, reprots she had a ruptred blood vessel), Increased Warmth Course - Vital Signs Last Recorded V/S: Last Vital Signs Temp 36.5 C 05/12/17 11:13 Pulse 75 05/12/17 11:13 Resp 14 05/12/17 11:13 BP 144/86 H 05/12/17 11:13 Pulse Ox 97 05/12/17 11:13 - Orders/Labs/Meds Meds: Medications Discontinued Medications Generic Name Dose Route Start Last Admin Trade Name Puma PRN Reason Stop Dose Admin Diphenhydramine HCl 50 mg 05/12/17 11:43 05/12/17 11:55 Benadryl IM 05/12/17 11:44 50 mg ONETIME ONE Administration Ketorolac Tromethamine 30 mg 05/12/17 11:43 05/12/17 11:54 Toradol IM 05/12/17 11:44 30 mg ONETIME ONE Administration - Re-Assessments/Exams Free Text/Narrative Re-Assessment/Exam: 05/12/17 12:55 I feel her symptoms are likely from some allergen. Upon further discussion, patient reports over the last week there has been work done in her home. She reports there has been a fair amount of concrete dust present. I feel this is likely causing her symptoms. Patient is also starting to develop an area of cellulitis to the right lateral proximal leg. Will start on antibiotics for that. Will start allergy drops for the eys. Follow-up with an eye doctor this week. 05/12/17 15:57 [facility] called. The pataday drops are $200+. Switched to OTC opcon. Departure - Departure Time of Disposition: 13:01 Disposition: Home, Self-Care 01 Condition: Fair Clinical Impression: Allergic conjunctivitis of both eyes Cellulitis Qualifiers: Site of cellulitis: extremity Site of cellulitis of extremity: lower extremity Laterality: right Qualified Code(s): L03.115 - Cellulitis of right lower limb - Discharge Information Prescriptions: Cephalexin [IJD: Cephalexin] 500 mg PO .EVERY 8 HOURS #21 cap Olopatadine HCl [Pataday] 2.5 ml EYEBOTH DAILY #1 bottle Instructions: Cellulitis, Adult, Allergic Conjunctivitis, [id number] Referrals: Agnes Puri DO [Primary Care Provider] - Forms: ED Department Discharge, ED Return to Work/School Form Additional Instructions: Take the cephalexin as prescribed. 1 tab every 8 hours for 7 days. Monitor the area of cellulitis for worsening erythema, swelling pus. Present the clinic or the ER should these develop. Expect that it may take a day or 2 before the erythema starts to subside. Pataday eyedrops, 1 drop to each eye daily. [id number] Tylenol or Motrin seen for additional symptom relief. You may also take Benadryl as needed for additional itchiness and swelling relief. Follow up with an eye doctor this week for recheck of your symptoms. Follow-up with your primary care provider as needed for the cellulitis. Please return to the ER if your symptoms change or worsen.
== END 2017-05-12 13:33 | disposition home or self-care (01) ==
LOC: JD.ED 11:09
DX: H10.13 Acute atopic conjunctivitis, bilateral (principal); L03.115 Cellulitis of right lower limb; Z88.8 Allergy status to other drugs, medicaments and biological substances; Z88.5 Allergy status to narcotic agent; Z79.82 Long term (current) use of aspirin; Z79.899 Other long term (current) drug therapy
CPT/HCPCS: 96372; 99283; J1200; J1885

== ENCOUNTER 2017-06-01 15:13 | Emergency (ER) | payer SELFPAY ==
[2017-06-01 15:39] VITALS: BP 136/96
[2017-06-01] MEDS ORDERED: Ketorolac 60 MG/2 ML SDV IM ONE (16:25)
[2017-06-01] MEDS ORDERED: traMADol 50 MG Tab PO ONE (16:26)
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
--- NOTE | 2017-06-03 06:46 | CR ---
Left wrist: Four views of the left wrist were obtained. Comparison: No previous wrist exam. Small cyst is noted within the navicular bone which is incidental. Several calcifications are seen and believed to be off the CMC joint of the thumb. Joint space within the CMC joint is narrowed with mild osteophytes. MCP joint of the thumb also shows some narrowing. Joint spaces are otherwise preserved. No fracture, dislocation or other bony abnormality is appreciated. Impression: 1. Degenerative change at the CMC joint of the thumb. Mild joint space narrowing is also noted within the MCP joint of the thumb. 2. Nothing acute is appreciated. Diagnostic code #2
== END 2017-06-01 18:00 | disposition home or self-care (01) ==
LOC: JD.ED 15:13
DX: T74.91XA Unspecified adult maltreatment, confirmed, initial encounter (principal); S63.502A Unspecified sprain of left wrist, initial encounter; S60.212A Contusion of left wrist, initial encounter; S20.221A Contusion of right back wall of thorax, initial encounter; I10 Essential (primary) hypertension; Z79.82 Long term (current) use of aspirin; Z87.891 Personal history of nicotine dependence; Z79.899 Other long term (current) drug therapy; Z88.5 Allergy status to narcotic agent; Y04.8XXA Assault by other bodily force, initial encounter
CPT/HCPCS: 73110; 99284; A9270; 99283

== ENCOUNTER 2017-06-28 01:58 | Emergency (ER) | payer SELFPAY ==
[2017-06-28 02:08] VITALS: BP 143/92
[2017-06-28] MEDS ORDERED: Lidocaine 1% with EPINEPHrine 1:100,000 20 ML MDV INJECT ONE (02:31)
--- NOTE | 2017-06-28 03:07 | EDM.PDOC ---
ED HPI GENERAL MEDICAL PROBLEM - General Chief Complaint: Lower Extremity Injury/Pain Stated Complaint: VARICOUS VEIN ISSUES Time Seen by Provider: 06/28/17 02:03 Source of Information: Reports: Patient, Family (), Old Records, RN Notes Reviewed History Limitations: Reports: No Limitations - History of Present Illness INITIAL COMMENTS - FREE TEXT/NARRATIVE: The patient has a history of bilateral lower extremity varicose veins. She has been seen in this emergency department on numerous occasions in the past after scratching her thigh, causing one of the vessels to bleed. Such was the case around 01:15 this morning. The patient states that the bleeding would not stop despite the application of numerous paper towels, however, once here in the ED, the bleeding has stopped. The patient's PCP is Dr. Agnes Puri. - Related Data Allergies Allergy/AdvReac Type Severity Reaction Status Date / Time hydromorphone HCl Allergy Hives Verified 06/28/17 02:09 [From Dilaudid] meperidine HCl [From Demerol] Allergy Hives Verified 06/28/17 02:09 Home Meds: Home Meds Albuterol [Proventil HFA] 2 puff INH DAILY PRN 05/05/17 [History] Aspirin 81 mg PO DAILY 05/05/17 [History] LORazepam 1 mg PO DAILY 05/05/17 [History] Lisinopril 20 mg PO DAILY 05/05/17 [History] Metoprolol Succinate [Toprol XL] 25 mg PO DAILY 05/05/17 [History] Sertraline [Zoloft] 100 mg PO DAILY 05/05/17 [History] Olopatadine HCl [Pataday] 2.5 ml EYEBOTH DAILY #1 bottle 05/12/17 [Rx] Gabapentin [Neurontin] 300 mg PO TID 06/01/17 [History] methylPREDNISolone [Medrol] 4 mg PO ASDIRECTED 06/01/17 [History] Past Medical History Cardiovascular History: Reports: CAD, Hypertension, [place], Other (See Below) ( Bilateral lower extremity varicose veins) Gastrointestinal History: Reports: Bowel Obstruction, GERD Musculoskeletal History: Reports: Fracture (left foot, right fifth toe) Psychiatric History: Reports: Anxiety, Depression Endocrine/Metabolic History: Reports: Obesity/BMI 30+ - Infectious Disease History Infectious Disease History: Reports: Chicken Pox - Past Surgical History Cardiovascular Surgical History: Reports: Other (See Below) (Coronary angiogram February 2017) GI Surgical History: Reports: Bariatric Procedure (Gastric bypass 2000), Cholecystectomy, Hernia, Abdominal, Lysis of Adhesions, Nadine Fundoplication Female Surgical History: Reports: Hysterectomy Musculoskeletal Surgical History: Reports: Carpal Tunnel (right) Social & Family History - Family History Family Medical History: Noncontributory - Tobacco Use Smoking Status *Q: Current Some Day Smoker Years of Tobacco use: 26 Packs/Tins Daily: 0.1 Packs/Tins Daily Comment: Down from 1.5 ppd - Caffeine Use Caffeine Use: Reports: Coffee, Soda, Tea - Alcohol Use Alcohol Use History: Yes Alcohol Use Frequency: Rarely - Recreational Drug Use Recreational Drug Use: No - Living Situation & Occupation Living situation: Reports: , with Spouse, with Family (Daughter, granddaughter) 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) Review of Systems - Review of Systems Review Of Systems: See Below Constitutional: Reports: No Symptoms Eyes: Reports: No Symptoms Ears: Reports: No Symptoms Nose: Reports: No Symptoms Mouth/Throat: Reports: No Symptoms Respiratory: Reports: No Symptoms Cardiovascular: Reports: No Symptoms GI/Abdominal: Reports: No Symptoms Genitourinary: Reports: No Symptoms Musculoskeletal: Reports: No Symptoms Skin: Reports: No Symptoms Neurological: Reports: No Symptoms Psychiatric: Reports: No Symptoms ED EXAM, GENERAL - Physical Exam Exam: See Below Exam Limited By: No Limitations General Appearance: Alert, WD/WN, No Apparent Distress Skin Exam: Warm, Dry, Intact, Normal Color, No Rash, Other (Numerous patches of varicose veins visible on the lateral right thigh. There is approximate 2 mm area of erythema adjacent to one patch of varicose veins on the lateral aspect of the right mid thigh, where the patient reports that the bleeding was, although there is no current bleeding.) ED TRAUMA EXTREMITY PROCEDURES - Additional/Other Procedure(s) Other (Free Text) Procedure(s): Procedure: Local injection of 1% lidocaine with epinephrine Indication: Recently bleeding varicose vein, lateral right thigh The area was cleaned with Betadine. Approximately 2 mL 1% lidocaine with lidocaine was injected locally, temporarily sclerosing the visible varicose veins. A pressure dressing was applied. The patient tolerated the procedure well. Course - Vital Signs Last Recorded V/S: Last Vital Signs Temp 36.3 C 06/28/17 02:06 Pulse 98 06/28/17 02:06 Resp 16 06/28/17 02:06 BP 143/92 H 06/28/17 02:06 Pulse Ox 98 06/28/17 02:06 - Orders/Labs/Meds Meds: Medications Discontinued Medications Generic Name Dose Route Start Last Admin Trade Name Puma PRN Reason Stop Dose Admin Lidocaine/Epinephrine 20 ml 06/28/17 02:31 06/28/17 02:44 Xylocaine 1% With Epinephrine 1:100,000 INJECT 06/28/17 02:32 20 ml ONETIME ONE Administration - Re-Assessments/Exams Free Text/Narrative Re-Assessment/Exam: 06/28/17 03:04 The site of the earlier varicose vein bleeding on the lateral aspect of the patient's right thigh was injected with 1% lidocaine with epinephrine, temporarily sclerosing the visible vessels. I explained to the patient that when the lidocaine and epinephrine is reabsorbed, and her pressure dressing is removed, likely tomorrow, that there is nothing stopping this area bleeding again. The patient needs definitive ablative therapy, which the patient acknowledges, however, she states that she is unable to do, due to not having health insurance. Departure - Departure Time of Disposition: 03:05 Disposition: Home, Self-Care 01 Condition: Good Clinical Impression: Bleeding from varicose veins of right lower extremity - Discharge Information Instructions: Bleeding Varicose Veins Referrals: Agnes Puri DO [Primary Care Provider] - Forms: ED Department Discharge Additional Instructions: You were seen in the emergency room for bleeding from a varicose vein on your right thigh. The bleeding stopped by the time he got to the ER, however, there was a high risk of rebleeding, therefore the area was injected with lidocaine with epinephrine. A pressure dressing was applied. You may remove the pressure dressing when you next bethe. The treatment you received is only temporary. We recommend you seek definitive ablative therapy to prevent this from recurring. We recommend you follow-up with Dr. Puri in this regard. If any other problems, please do not hesitate to return to the ER.
== END 2017-06-28 03:20 | disposition home or self-care (01) ==
LOC: JD.ED 01:58
DX: I83.891 Varicose veins of right lower extremity with other complications (principal); I10 Essential (primary) hypertension; I25.10 Atherosclerotic heart disease of native coronary artery without angina pectoris; F32.9 Major depressive disorder, single episode, unspecified; F17.210 Nicotine dependence, cigarettes, uncomplicated; Z88.5 Allergy status to narcotic agent; Z88.6 Allergy status to analgesic agent
CPT/HCPCS: 99283

== ENCOUNTER 2017-10-13 17:08 | Emergency (ER) | payer SELFPAY ==
[2017-10-13 17:27] VITALS: BP 146/100
[2017-10-13] MEDS ORDERED: Ketorolac 60 MG/2 ML SDV IM ONE (17:57)
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
--- NOTE | 2017-10-14 09:33 | CR ---
Right shoulder: Three views of the right shoulder were obtained. Comparison: No prior study. Glenohumeral joint and acromioclavicular joint appear within normal limits. Several lucencies are seen at the base of the greater tuberosity believed to be incidental. No acute fracture or other bony abnormality is identified. Impression: 1. Nothing acute is appreciated on three-view right shoulder study. Diagnostic code #2
== END 2017-10-13 19:25 | disposition home or self-care (01) ==
LOC: JD.ED 17:08
DX: S49.91XA Unspecified injury of right shoulder and upper arm, initial encounter (principal); I10 Essential (primary) hypertension; I25.10 Atherosclerotic heart disease of native coronary artery without angina pectoris; Z88.5 Allergy status to narcotic agent; Z79.82 Long term (current) use of aspirin; Z79.899 Other long term (current) drug therapy; Z87.891 Personal history of nicotine dependence; X50.1XXA Overexertion from prolonged static or awkward postures, initial encounter
CPT/HCPCS: 73030; 96372; 99283; J1885

== ENCOUNTER 2017-11-22 18:57 | Emergency (ER) | payer SELFPAY ==
[2017-11-22 19:11] VITALS: BP 143/102
[2017-11-22] MEDS ORDERED: diphenhydrAMINE 50 MG/ML SDV IVPUSH ONE (20:08)
[2017-11-22] MEDS ORDERED: LORazepam 2 MG/ML SDV IVPUSH ONE (20:08)
[2017-11-22] MEDS ORDERED: Ondansetron 4 MG/2 ML SDV IVPUSH ONE (20:08)
[2017-11-22] MEDS ORDERED: Sodium Chloride 0.9% 1,000 ML IV SCH (20:15)
--- NOTE | 2017-11-22 20:45 | EDM.PDOC ---
ED HPI GENERAL MEDICAL PROBLEM - General Chief Complaint: Neurological Problem Stated Complaint: HEAD INJURY/HEADACHE/VOMITING Time Seen by Provider: 11/22/17 19:33 Source of Information: Reports: Patient, Family History Limitations: Reports: No Limitations - History of Present Illness INITIAL COMMENTS - FREE TEXT/NARRATIVE: This is a 47-year-old female. She states one week ago she thinks she fell but she woke up on the floor and noted that she had a mild headache on both sides of her head. Over the last several days she has developed lightheadedness when she stands up and vertigo when she moves her head or changes position of her head. She has no idea why she might have fallen or what happened when she fell she just woke up on the floor. Now with this persistent headache that seems to be getting worse she has a hard time concentrating. With the vertigo she has nausea and vomiting. In the headache seems to be getting worse maybe more so on the right side than the left. She also sees these dark lines in her peripheral vision especially off to the left. Because of the headache and progression and the vertigo she comes to the ER this evening for evaluation. She denies any fever or chills she denies any diarrhea she denies any abdominal pain. Headache Pain Score (Numeric/FACES): 9 - Related Data Allergies Allergy/AdvReac Type Severity Reaction Status Date / Time hydromorphone HCl Allergy Hives Verified 11/22/17 19:11 [From Dilaudid] meperidine HCl [From Demerol] Allergy Hives Verified 11/22/17 19:11 Home Meds: Home Meds Albuterol [Proventil HFA] 2 puff INH DAILY PRN 05/05/17 [History] Aspirin 81 mg PO DAILY 05/05/17 [History] LORazepam 1 mg PO DAILY 05/05/17 [History] Lisinopril 20 mg PO DAILY 05/05/17 [History] Metoprolol Succinate [Toprol XL] 25 mg PO DAILY 05/05/17 [History] Sertraline [Zoloft] 100 mg PO DAILY 05/05/17 [History] Cider Vinegar [Apple Cider Vinegar] 600 mg PO DAILY 10/13/17 [History] Acetaminophen/Butalbital/Caff [Fioricet 325-50-40 MG] 1 each PO Q8H PRN #12 tab 11/22/17 [Rx] Meclizine [Antivert] 25 mg PO Q6H PRN #15 tab 11/22/17 [Rx] Ondansetron HCl [Zofran] 4 mg PO Q8H PRN #12 tablet 11/22/17 [Rx] Past Medical History - Past Health History Medical/Surgical History: Denies Medical/Surgical History HEENT History: Reports: Impaired Vision Cardiovascular History: Reports: CAD, Hypertension, [place], Other (See Below) Gastrointestinal History: Reports: Bowel Obstruction, GERD 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 (See Below) Other OB/BYN History: breast reduction Musculoskeletal History: Reports: Fracture Psychiatric History: Reports: Anxiety, Depression Endocrine/Metabolic History: Reports: Obesity/BMI 30+ - Infectious Disease History Infectious Disease History: Reports: Chicken Pox - Past Surgical History Cardiovascular Surgical History: Reports: Other (See Below) GI Surgical History: Reports: Bariatric Procedure, Cholecystectomy, Hernia, Abdominal, Lysis of Adhesions, Nadine Fundoplication Female Surgical History: Reports: Hysterectomy Musculoskeletal Surgical History: Reports: Carpal Tunnel Social & Family History - Family History Family Medical History: Noncontributory Cardiac: Reports: CAD, [place] Endocrine/Metabolic: Reports: Diabetes, type II Oncologic: Reports: Breast, Cervix - Tobacco Use Smoking Status *Q: Current Some Day Smoker Years of Tobacco use: 10 Packs/Tins Daily: 0.1 Used Tobacco, but Quit: No Month/Year Tobacco Last Used: 2016 Second Hand Smoke Exposure: No - Caffeine Use Caffeine Use: Reports: Soda - Alcohol Use Days Per Week of Alcohol Use: 0 Number of Drinks Per Day: 0 Total Drinks Per Week: 0 - Recreational Drug Use Recreational Drug Use: No Drug Use in Last 12 Months: No - Living Situation & Occupation Living situation: Reports: , with Spouse, with Family (Daughter, granddaughter) 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 Denies: Abdominal Pain, Diarrhea : Reports: No Symptoms Musculoskeletal: Denies: Neck Pain Skin: Reports: No Symptoms Neurological: Reports: Dizziness, Headache. Denies: Seizure, Syncope Psychiatric: Reports: No Symptoms Hematologic/Lymphatic: Reports: No Symptoms ED EXAM, NEURO - Physical Exam Exam: See Below Exam Limited By: No Limitations General Appearance: Alert, WD/WN, Mild Distress Eye Exam: Bilateral Eye: Normal Inspection, Other (When I put her bed at 30 and then move her head from left or to right she does complain of some mild vertigo or room spinning but she has no nystagmus) Ears: Normal External Exam, Normal Canal, Normal TMs Nose: Normal Inspection Throat/Mouth: Normal Inspection, Normal Lips, Normal Voice, No Airway Compromise Head Exam: Normocephalic Neck: Supple, Other (No nuchal rigidity) Respiratory/Chest: No Respiratory Distress, Lungs Clear, Normal Breath Sounds Cardiovascular: Regular Rate, Rhythm, No Murmur GI/Abdominal: Non-Tender, Other (Morbidly obese) Neurological: Alert, Normal Mood/Affect, No Motor/Sensory Deficits, Oriented x 3 Back Exam: Other (She moves around the bed without difficulty and rolls over without difficulty.) Extremities: Normal Inspection, Normal Range of Motion, Other (Very mild pedal edema more puffy not pitting) Psychiatric: Normal Affect, Normal Mood Skin Exam: Warm, Dry Course - Vital Signs Last Recorded V/S: Last Vital Signs Temp 98.7 F 11/22/17 19:07 Pulse 95 11/22/17 19:07 Resp 18 11/22/17 19:07 BP 143/102 H 11/22/17 19:07 Pulse Ox 100 11/22/17 19:07 - Orders/Labs/Meds Orders: Active Orders 24 hr Category Date Time Status Sodium Chloride 0.9% [Normal Saline] 1,000 ml Med 11/22/17 20:15 Active IV ASDIRECTED Medication Orders Sodium Chloride (Normal Saline) 1,000 mls @ 500 mls/hr IV ASDIRECTED ARNAV Last Admin: 11/22/17 20:14 Dose: 500 mls/hr Labs: Laboratory Tests 11/22/17 11/22/17 Range/Units 20:15 20:15 WBC 7.19 (3.98-10.04) K/mm3 RBC 4.65 (3.98-5.22) M/mm3 Hgb 10.8 L (11.2-15.7) gm/L Hct 34.9 (34.1-44.9) % MCV 75.1 L (79.4-94.8) fl MCH 23.2 L (25.6-32.2) pg MCHC 30.9 L (32.2-35.5) g/dl RDW Std Deviation 45.5 (36.4-46.3) fL Plt Count 383 H (182-369) K/mm3 MPV 9.1 L (9.4-12.3) fl Neut % (Auto) 48.3 (34.0-71.1) % Lymph % (Auto) 32.8 (19.3-51.7) % [place] % (Auto) 7.2 (4.7-12.5) % Eos % (Auto) 10.8 H (0.7-5.8) Baso % (Auto) 0.8 (0.1-1.2) % Neut # (Auto) 3.46 (1.56-6.13) K/mm3 Lymph # (Auto) 2.36 (1.18-3.74) K/mm3 [place] # (Auto) 0.52 H (0.24-0.36) K/mm3 Eos # (Auto) 0.78 H (0.04-0.36) K/mm3 Baso # (Auto) 0.06 (0.01-0.08) K/mm3 Sodium 136 (136-145) mEq/L Potassium 3.8 (3.5-5.1) mEq/L Chloride 103 (98-107) mEq/L Carbon Dioxide 26 (21-32) mEq/L Anion Gap 10.8 (5-15) BUN 12 (7-18) mg/dL Creatinine 0.7 (0.55-1.02) mg/dL Est Cr Clr Drug Dosing 86.72 mL/min Estimated GFR (MDRD) > 60 (>60) mL/min BUN/Creatinine Ratio 17.1 (14-18) Glucose 81 (74-106) mg/dL Calcium 9.0 (8.5-10.1) mg/dL Total Bilirubin 0.3 (0.2-1.0) mg/dL AST 16 (15-37) U/L ALT 20 (14-59) U/L Alkaline Phosphatase 112 (46-116) U/L Total Protein 8.1 (6.4-8.2) g/dl Albumin 4.1 (3.4-5.0) g/dl Globulin 4.0 gm/dL Albumin/Globulin Ratio 1.0 (1-2) Meds: Medications Generic Name Dose Route Start Last Admin Trade Name Puma PRN Reason Stop Dose Admin Sodium Chloride 1,000 mls @ 500 mls/hr 11/22/17 20:15 11/22/17 20:14 Normal Saline IV 500 mls/hr ASDIRECTED ARNAV Administration Discontinued Medications Generic Name Dose Route Start Last Admin Trade Name Puma PRN Reason Stop Dose Admin Diphenhydramine HCl 25 mg 11/22/17 20:08 11/22/17 20:18 Benadryl IVPUSH 11/22/17 20:09 25 mg ONETIME ONE Administration Lorazepam 0.5 mg 11/22/17 20:08 11/22/17 20:19 Ativan IVPUSH 11/22/17 20:09 0.5 mg ONETIME ONE Administration Ondansetron HCl 4 mg 11/22/17 20:08 11/22/17 20:16 Zofran IVPUSH 11/22/17 20:09 4 mg ONETIME ONE Administration - Radiology Interpretation Free Text/Narrative:: CT scan of the head shows a 9 mm low density abnormality in the left basal ganglia either suggest an old lacunar infarct or a very prominent perivascular space. There is no other additional abnormalities noted no masses no midline shift and no bleed. - Re-Assessments/Exams Free Text/Narrative Re-Assessment/Exam: 11/22/17 21:26 I spoke to the patient and her significant other regarding the CT scan. 11/22/17 22:36 Patient is feeling better and the headache is better but she still has some mild vertigo. I spoke to them about her lab work and repeated the information about the CAT scan. She needs to follow-up with her family doctor regarding this possible vascular appearance versus an old lacunar infarct. I do not believe is related to her symptoms tonight. Departure - Departure Time of Disposition: 22:36 Disposition: Home, Self-Care 01 Condition: Fair Clinical Impression: Vertigo Headache Qualifiers: Headache type: unspecified Headache chronicity pattern: acute headache Intractability: not intractable Qualified Code(s): R51 - Headache Nausea and vomiting Qualifiers: Vomiting type: unspecified Vomiting Intractability: non-intractable Qualified Code(s): R11.2 - Nausea with vomiting, unspecified - Discharge Information Prescriptions: Acetaminophen/Butalbital/Caff [Fioricet 325-50-40 MG] 1 each PO Q8H PRN #12 tab PRN Reason: Headache Meclizine [Antivert] 25 mg PO Q6H PRN #15 tab PRN Reason: Dizziness Ondansetron HCl [Zofran] 4 mg PO Q8H PRN #12 tablet PRN Reason: Nausea Referrals: PCP,None [Primary Care Provider] - Forms: ED Department Discharge Additional Instructions: Home and rest and sleep as much as possible tomorrow, very gentle and slow movements of your head to avoid the dizziness, take the Fioricet as needed for the headaches, drink lots of water that will help your headaches, use the Zofran as needed for nausea and vomiting, take the meclizine for the dizziness, follow-up with your family doctor this week for recheck, return to the ER if your symptoms worsen - My Orders Last 24 Hours: My Active Orders 11/22/17 20:15 Sodium Chloride 0.9% [Normal Saline] 1,000 ml IV ASDIRECTED - Assessment/Plan Last 24 Hours: My Active Orders 11/22/17 20:15 Sodium Chloride 0.9% [Normal Saline] 1,000 ml IV ASDIRECTED
--- NOTE | 2017-11-22 20:51 | CT ---
Head CT Technique: Multiple axial sections through the brain were obtained. Intravenous contrast was not utilized. Comparison: No prior intracranial imaging. Findings: Small low-density abnormality is noted within the left basal ganglia measuring proximately 9 mm. No other abnormal parenchymal densities are seen. No evidence of intracranial hemorrhage. No midline shift or mass effect is seen. Bone window settings shows the visualized sinuses to appear clear. No acute calvarial abnormality is seen. Impression: 1. 9 mm low-density abnormality with the left basal ganglia. This either represents either an old lacunar infarct or a very prominent perivascular space. 2. No additional abnormality is identified on noncontrast head CT study. Diagnostic code #2
== END 2017-11-22 22:54 | disposition home or self-care (01) ==
LOC: JD.ED 18:57
DX: R42 Dizziness and giddiness (principal); R51 Headache; R11.2 Nausea with vomiting, unspecified; I10 Essential (primary) hypertension; I25.2 Old myocardial infarction; F17.210 Nicotine dependence, cigarettes, uncomplicated; Z88.5 Allergy status to narcotic agent; Z79.82 Long term (current) use of aspirin; Z79.899 Other long term (current) drug therapy
CPT/HCPCS: 36415; 70450; 80053; 85025; 96361; 96374; 96375; 99284; J1200; J2060; J2405; J7040

== ENCOUNTER 2017-12-17 23:43 | Emergency (ER) | payer SELFPAY ==
[2017-12-17 23:56] VITALS: BP 142/95
--- NOTE | 2017-12-18 00:12 | EDM.PDOC ---
ED HPI GENERAL MEDICAL PROBLEM - General Chief Complaint: Bite:Animal, Insect Stated Complaint: DOG BITE Time Seen by Provider: 12/18/17 00:08 Source of Information: Reports: Patient, RN Notes Reviewed - History of Present Illness INITIAL COMMENTS - FREE TEXT/NARRATIVE: 47-year-old female comes in with severe right index finger pain. She got bit by a dog 2 days ago she was seen at the walk-in clinic this past morning started on Augmentin for infection. She has taken 2 doses so far with her second dose just a short time ago. She states there has been a small amount of drainage from the bite area today. Severe throbbing pain, localized erythema area of bite injury. Right Hand Pain Score (Numeric/FACES): 6 - Related Data Allergies Allergy/AdvReac Type Severity Reaction Status Date / Time hydromorphone HCl Allergy Hives Verified 12/17/17 23:49 [From Dilaudid] meperidine HCl [From Demerol] Allergy Hives Verified 12/17/17 23:49 Home Meds: Home Meds Albuterol [Proventil HFA] 2 puff INH DAILY PRN 05/05/17 [History] Aspirin 81 mg PO DAILY 05/05/17 [History] LORazepam 1 mg PO DAILY 05/05/17 [History] Sertraline [Zoloft] 100 mg PO DAILY 05/05/17 [History] Cider Vinegar [Apple Cider Vinegar] 600 mg PO DAILY 10/13/17 [History] Acetaminophen/Butalbital/Caff [Fioricet 325-50-40 MG] 1 each PO Q8H PRN #12 tab 11/22/17 [Rx] Ondansetron HCl [Zofran] 4 mg PO Q8H PRN #12 tablet 11/22/17 [Rx] Amoxicillin/Clavulanate K [Augmentin 875-125 MG] 1 tab PO BID 12/17/17 [History] Metoprolol Tartrate [Lopressor] 25 mg PO Q12HR 12/17/17 [History] atorvaSTATin [Lipitor] 40 mg PO BEDTIME 12/17/17 [History] Acetaminophen/HYDROcodone [Gregory 325-5 MG] 1 tab PO Q6H PRN #10 tablet 12/18/17 [Rx] Past Medical History - Past Health History Medical/Surgical History: Denies Medical/Surgical History HEENT History: Reports: Impaired Vision Cardiovascular History: Reports: CAD, Hypertension, [place], Other (See Below) Gastrointestinal History: Reports: Bowel Obstruction, GERD 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 Below) Other OB/BYN History: breast reduction Musculoskeletal History: Reports: Fracture Psychiatric History: Reports: Anxiety, Depression Endocrine/Metabolic History: Reports: Obesity/BMI 30+ - Infectious Disease History Infectious Disease History: Reports: Chicken Pox - Past Surgical History GI Surgical History: Reports: Bariatric Procedure, Cholecystectomy, Hernia, Abdominal, Lysis of Adhesions, Nadine Fundoplication Female Surgical History: Reports: Hysterectomy Musculoskeletal Surgical History: Reports: Carpal Tunnel Social & Family History - Family History Family Medical History: Noncontributory Cardiac: Reports: CAD, [place] Endocrine/Metabolic: Reports: Diabetes, type II Oncologic: Reports: Breast, Cervix - Tobacco Use Smoking Status *Q: Former Smoker Used Tobacco, but Quit: Yes Month/Year Tobacco Last Used: 6 months ago Second Hand Smoke Exposure: No - Caffeine Use Caffeine Use: Reports: Coffee - Recreational Drug Use Recreational Drug Use: No - Living Situation & Occupation Living situation: Reports: , with Spouse, with Family (Daughter, granddaughter) 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 GENERAL - Review of Systems Review Of Systems: See Below Constitutional: Denies: Fever, Chills HEENT: Reports: No Symptoms Respiratory: Reports: No Symptoms Cardiovascular: Reports: No Symptoms GI/Abdominal: Denies: Nausea, Vomiting Musculoskeletal: Reports: Other (Pain area of bite injury proximal right index finger) Skin: Reports: Erythema (Mild area of bite injury) ED EXAM, ANIMAL BITE - Physical Exam Exam: See Below General Appearance: Alert, Moderate Distress Head: Atraumatic Neck: Supple Respiratory/Chest: No Respiratory Distress Extremities: Other (Puncture wound visible ulnar aspect of proximal right index finger with slight amount of drainage present at time of my exam, small area of surrounding swelling and erythema with localized tenderness.) Neurological: No Motor/Sensory Deficits Course - Vital Signs Last Recorded V/S: Last Vital Signs Temp 98 F 12/17/17 23:54 Pulse 86 12/17/17 23:54 Resp 18 12/17/17 23:54 BP 142/95 H 12/17/17 23:54 Pulse Ox 97 05/29/18 23:54 - Orders/Labs/Meds Meds: Medications Discontinued Medications Generic Name Dose Route Start Last Admin Trade Name Puma PRN Reason Stop Dose Admin Hydrocodone Bitart/Acetaminophen 1 tab 12/18/17 00:08 12/18/17 00:19 Gregory 325-5 Mg PO 12/18/17 00:09 1 tab ONETIME ONE Administration - Re-Assessments/Exams Free Text/Narrative Re-Assessment/Exam: 12/18/17 02:18 Patient did have a culture done at time of her clinic visit, Augmentin is the appropriate antibiotic for her at this time. Discharge instructions as documented. Departure - Departure Time of Disposition: 00:09 Disposition: Home, Self-Care 01 Condition: Fair Clinical Impression: Finger infection Cause of injury, dog bite Qualifiers: Encounter type: initial encounter Qualified Code(s): W54.0XXA - Bitten by dog, initial encounter - Discharge Information Prescriptions: Acetaminophen/HYDROcodone [Gregory 325-5 MG] 1 tab PO Q6H PRN #10 tablet PRN Reason: Pain Instructions: Animal Bite, [id number] Referrals: PCP,None [Primary Care Provider] - Forms: ED Department Discharge Additional Instructions: soak finger 45 times daily in warm soapy water, continue the Augmentin prescribed twice daily until gone, follow-up clinic for recheck and for culture results, call for appointment this a.m., you may continue to alternate Tylenol and ibuprofen for mild to moderate discomfort or take hydrocodone if needed for severe pain. Do not take Tylenol and hydrocodone at the same time, do not drive when taking hydrocodone.
[2017-12-18] MEDS: Acetaminophen/HYDROcodone 325-5 MG Tab PO ONE (00:19)
== END 2017-12-18 00:23 | disposition home or self-care (01) ==
LOC: JD.ED 23:43
DX: S61.250A Open bite of right index finger without damage to nail, initial encounter (principal); L08.9 Local infection of the skin and subcutaneous tissue, unspecified; I25.10 Atherosclerotic heart disease of native coronary artery without angina pectoris; I10 Essential (primary) hypertension; I25.2 Old myocardial infarction; F41.9 Anxiety disorder, unspecified; F32.9 Major depressive disorder, single episode, unspecified; W54.0XXA Bitten by dog, initial encounter; Z88.8 Allergy status to other drugs, medicaments and biological substances; Z88.5 Allergy status to narcotic agent; Z79.82 Long term (current) use of aspirin; Z79.899 Other long term (current) drug therapy; Z87.891 Personal history of nicotine dependence
CPT/HCPCS: 99283; A9270

== ENCOUNTER 2018-02-26 00:46 | Emergency (ER) | payer SELFPAY ==
[2018-02-26 01:00] VITALS: BP 141/99
--- NOTE | 2018-02-26 01:41 | EDM.PDOC ---
ED HPI GENERAL MEDICAL PROBLEM - General Chief Complaint: Skin Complaint Stated Complaint: VEIN ISSUE BLEEDING Time Seen by Provider: 02/26/18 00:59 Source of Information: Reports: Patient History Limitations: Reports: No Limitations - History of Present Illness INITIAL COMMENTS - FREE TEXT/NARRATIVE: The patient presents for a vericose vein that was bleeding. She dropped a pedi egg on her leg and it nicked one of her vericose veins to her left lower leg. She could not get it to stop. She is not on any blood thinners. This has happened before. Onset: Sudden Duration: Minutes: Severity: Moderate Improves with: Reports: None Worsens with: Reports: None Associated Symptoms: Reports: No Other Symptoms - Related Data Allergies Allergy/AdvReac Type Severity Reaction Status Date / Time hydromorphone HCl Allergy Hives Verified 02/26/18 01:00 [From Dilaudid] meperidine HCl [From Demerol] Allergy Hives Verified 02/26/18 01:00 Home Meds: Home Meds Albuterol [Proventil HFA] 2 puff INH DAILY PRN 05/05/17 [History] Aspirin 81 mg PO DAILY 05/05/17 [History] LORazepam 1 mg PO DAILY 05/05/17 [History] Sertraline [Zoloft] 100 mg PO DAILY 05/05/17 [History] Cider Vinegar [Apple Cider Vinegar] 600 mg PO DAILY 10/13/17 [History] Acetaminophen/Butalbital/Caff [Fioricet 325-50-40 MG] 1 each PO Q8H PRN #12 tab 11/22/17 [Rx] Ondansetron HCl [Zofran] 4 mg PO Q8H PRN #12 tablet 11/22/17 [Rx] Amoxicillin/Clavulanate K [Augmentin 875-125 MG] 1 tab PO BID 12/17/17 [History] Metoprolol Tartrate [Lopressor] 25 mg PO Q12HR 12/17/17 [History] atorvaSTATin [Lipitor] 40 mg PO BEDTIME 12/17/17 [History] Acetaminophen/HYDROcodone [[place] 325-5 MG] 1 tab PO Q6H PRN #10 tablet 12/18/17 [Rx] Past Medical History - Past Health History Medical/Surgical History: Denies Medical/Surgical History HEENT History: Reports: Impaired Vision Cardiovascular History: Reports: CAD, Hypertension, [place], Other (See Below) Gastrointestinal History: Reports: Bowel Obstruction, GERD 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 Musculoskeletal History: Reports: Fracture Psychiatric History: Reports: Anxiety, Depression Endocrine/Metabolic History: Reports: Obesity/BMI 30+ - Infectious Disease History Infectious Disease History: Reports: Chicken Pox - Past Surgical History GI Surgical History: Reports: Bariatric Procedure, Cholecystectomy, Hernia, Abdominal, Lysis of Adhesions, Nadine Fundoplication Female Surgical History: Reports: Hysterectomy Musculoskeletal Surgical History: Reports: Carpal Tunnel Social & Family History - Family History Family Medical History: Noncontributory Cardiac: Reports: CAD, [place] Endocrine/Metabolic: Reports: Diabetes, type II Oncologic: Reports: Breast, Cervix - Tobacco Use Smoking Status *Q: Light Tobacco Smoker Years of Tobacco use: 20 Packs/Tins Daily: 0.1 - Caffeine Use Caffeine Use: Reports: Coffee - Recreational Drug Use Recreational Drug Use: No - Living Situation & Occupation Living situation: Reports: , with Spouse, with Family (Daughter, granddaughter) 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 GENERAL - Review of Systems Review Of Systems: See Below Constitutional: Reports: No Symptoms HEENT: Reports: No Symptoms Respiratory: Reports: No Symptoms Cardiovascular: Reports: No Symptoms Endocrine: Reports: No Symptoms GI/Abdominal: Reports: No Symptoms : Reports: No Symptoms Musculoskeletal: Reports: Other (Small vericose vein with mild active bleeding to the left upper lateral low leg) ED EXAM, SKIN/RASH Exam: See Below Exam Limited By: No Limitations General Appearance: Alert, No Apparent Distress Ears: Normal External Exam Nose: Normal Inspection Head: Atraumatic, Normocephalic Neck: Normal Inspection Respiratory/Chest: No Respiratory Distress Extremities: Other (Mild bleeding from a vercose vein in her left, proximal, lateral, lower leg) Course - Vital Signs Last Recorded V/S: Last Vital Signs Temp 98.4 F 02/26/18 00:58 Pulse 113 H 02/26/18 00:58 Resp 18 02/26/18 00:58 BP 141/99 H 02/26/18 00:58 Pulse Ox 100 02/26/18 00:58 - Re-Assessments/Exams Free Text/Narrative Re-Assessment/Exam: 02/26/18 01:41 I applied some silver nitrate and it appears it has stopped. 02/26/18 02:04 There was no more bleeding. I will discharge her home. Departure - Departure Time of Disposition: 02:05 Disposition: Home, Self-Care 01 Condition: Good Clinical Impression: Bleeding from varicose vein - Discharge Information *PRESCRIPTION DRUG MONITORING PROGRAM REVIEWED*: Not Applicable *COPY OF PRESCRIPTION DRUG MONITORING REPORT IN PATIENT DARIN: Not Applicable Referrals: Marta Huerta NP [Primary Care Provider] - Forms: ED Department Discharge Additional Instructions: Please return if you have more bleeding.
== END 2018-02-26 02:00 | disposition home or self-care (01) ==
LOC: JD.ED 00:46
DX: I83.892 Varicose veins of left lower extremity with other complications (principal); I10 Essential (primary) hypertension; E66.9 Obesity, unspecified; F17.210 Nicotine dependence, cigarettes, uncomplicated; Z88.8 Allergy status to other drugs, medicaments and biological substances; Z79.82 Long term (current) use of aspirin; Z79.899 Other long term (current) drug therapy
CPT/HCPCS: 99283

== ENCOUNTER 2019-08-05 14:00 | Emergency (ER) | payer MEDICAID ==
[2019-08-05 14:08] VITALS: BP 158/98; PULSE 85
--- NOTE | 2019-08-05 15:04 | EDM.PDOC ---
ED HPI GENERAL MEDICAL PROBLEM - General Chief Complaint: Lower Extremity Injury/Pain Stated Complaint: TOE INJURY Time Seen by Provider: 08/05/19 14:06 Source of Information: Reports: Patient History Limitations: Reports: No Limitations - History of Present Illness INITIAL COMMENTS - FREE TEXT/NARRATIVE: patient is a 49-year-old female who presents with complaints of pain to her right fifth toe after kicking her 's steel toe boot last night.she has been taking Tylenol and ibuprofen as needed for pain. She is also been icing the toe. She has no history of injuries to that extremity previously. Treatments RETORT FORKER: Reports: Acetaminophen, NSAIDS Right Toe-Little Pain Score (Numeric/FACES): 8 - Related Data Allergies Allergy/AdvReac Type Severity Reaction Status Date / Time hydromorphone HCl Allergy Hives Verified 08/05/19 14:08 [From Dilaudid] meperidine HCl [From Demerol] Allergy Hives Verified 08/05/19 14:08 Home Meds: Home Meds Ferrous Gluconate [Iron] 236 mg PO DAILY #30 tablet 06/10/18 [Rx] Albuterol Sulfate [Proair Hfa] 1 puff INH Q4HR PRN 01/21/19 [History] Amitriptyline [Elavil] 25 mg PO BEDTIME 01/21/19 [History] Aspirin [Adult Low Dose Aspirin EC] 81 mg PO DAILY 01/21/19 [History] LORazepam [Ativan] 1 mg PO BEDTIME 01/21/19 [History] Metoprolol Succinate 25 mg PO DAILY 01/21/19 [History] Venlafaxine [Effexor XR] 150 mg PO DAILY 01/21/19 [History] Venlafaxine [Effexor] 25 mg PO DAILY 01/21/19 [History] atorvaSTATin [Lipitor] 40 mg PO DAILY 01/21/19 [History] hydroCHLOROthiazide [Hydrochlorothiazide] 12.5 mg PO DAILY 01/21/19 [History] Past Medical History - Past Health History Medical/Surgical History: Denies Medical/Surgical History HEENT History: Reports: Impaired Vision Cardiovascular History: Reports: CAD, Hypertension, [place], Other (See Below) Other Cardiovascular History: vericose veins Respiratory History: Reports: SOB Gastrointestinal History: Reports: Bowel Obstruction, GERD CAGE MAKER MACHINE History: Reports: Other (See Below) Other CAGE MAKER MACHINE History: breast reduction Musculoskeletal History: Reports: Fracture Neurological History: Reports: None Psychiatric History: Reports: Anxiety, Depression Endocrine/Metabolic History: Reports: Obesity/BMI 30+ Hematologic History: Reports: None Immunologic History: Reports: None Oncologic (Cancer) History: Reports: None Dermatologic History: Reports: Other (See Below) Other Dermatologic History: vericose veins - Infectious Disease History Infectious Disease History: Reports: Chicken Pox - Past Surgical History GI Surgical History: Reports: Bariatric Procedure, Cholecystectomy, Hernia, Abdominal, Lysis of Adhesions, Nadine Fundoplication Female Surgical History: Reports: Section, Hysterectomy Musculoskeletal Surgical History: Reports: Carpal Tunnel Social & Family History - Family History Family Medical History: Noncontributory Cardiac: Reports: CAD, [place] Endocrine/Metabolic: Reports: Diabetes, type II Oncologic: Reports: Breast, Cervix - Tobacco Use Smoking Status *Q: Former Smoker Used Tobacco, but Quit: Yes Month/Year Tobacco Last Used: 2018 - Caffeine Use Caffeine Use: Reports: Coffee - Recreational Drug Use Recreational Drug Use: No - Living Situation & Occupation Living situation: Reports: , with Spouse, with Family (Daughter, granddaughter) 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 ED EXAM, GENERAL - Physical Exam Exam: See Below Exam Limited By: No Limitations General Appearance: Alert, WD/WN, No Apparent Distress Respiratory/Chest: No Respiratory Distress, Lungs Clear, Normal Breath Sounds, No Accessory Muscle Use Cardiovascular: Normal Peripheral Pulses, Regular Rate, Rhythm, No Murmur Extremities: Other (ecchymosis and edema to right fifth toe. no obvious deformity.) Neurological: Alert, Oriented, Normal Cognition Psychiatric: Normal Affect, Normal Mood Skin Exam: Warm, Dry, Intact, Normal Color, No Rash Course - Vital Signs Last Recorded V/S: Last Vital Signs Temp 96.9 F 08/05/19 14:05 Pulse 85 08/05/19 14:05 Resp 19 08/05/19 14:05 BP 158/98 H 08/05/19 14:05 Pulse Ox 99 08/05/19 14:05 - Orders/Labs/Meds Orders: Active Orders 24 hr Category Date Time Status Toes Fifth Digit Rt T9 [CR] Stat Exams 08/05/19 14:37 Taken DME for Discharge [COMM] Routine Oth 08/05/19 14:58 Ordered - Re-Assessments/Exams Free Text/Narrative Re-Assessment/Exam: 08/05/19 15:01 x-ray of toe shows no acute fracture. I did maris tape the fifth toe to the fourth toe. She will be given a surgical shoe to wear as needed for comfort. Discharge instructions as noted. Departure - Departure Time of Disposition: 15:02 Disposition: Home, Self-Care 01 Condition: Good, Fair Clinical Impression: Toe contusion Qualifiers: Encounter type: initial encounter Toe: lesser toe Damage to nail status: without damage Laterality: right Qualified Code(s): S90.121A - Contusion of right lesser toe(s) without damage to nail, initial encounter - Discharge Information *PRESCRIPTION DRUG MONITORING PROGRAM REVIEWED*: No *COPY OF PRESCRIPTION DRUG MONITORING REPORT IN PATIENT DARIN: No Instructions: Contusion, [id number] Referrals: Marta Ray VEHICLE INSPECTOR [Primary Care Provider] - Additional Instructions: You were seen in the emergency department today for pain and bruising to your right pinky toe. X-rays were done and there was no signs of fracture. We did maris tape the toe and provided with a surgical shoe that you can use for comfort. I would recommend that you ice the toe for 20 minutes every couple hours. Do not apply ice directly to the skin. He may use [id number] naproxen or Tylenol for pain. If you experience any new or worsening symptoms, please not hesitate to return to the emergency department. Sepsis Event Note - Evaluation Sepsis Screening Result: No Definite Risk - Focused Exam Vital Signs: Vital Signs Temp Pulse Resp BP Pulse Ox 08/05/19 14:05 96.9 F 85 19 158/98 H 99 Date Exam was Performed: 08/05/19 Time Exam was Performed: 14:59 - My Orders Last 24 Hours: My Active Orders 08/05/19 14:37 Toes Fifth Digit Rt T9 [CR] Stat 08/05/19 14:58 DME for Discharge [COMM] Routine - Assessment/Plan Last 24 Hours: My Active Orders 08/05/19 14:37 Toes Fifth Digit Rt T9 [CR] Stat 08/05/19 14:58 DME for Discharge [COMM] Routine
--- NOTE | 2019-08-05 15:36 | CR ---
Right fifth toe: Four views of the right fifth toe were obtained. Comparison: No previous toe study. There appears to be an old fracture within the proximal phalanx. Soft tissue swelling is noted. No definite acute abnormality is appreciated. Impression: 1. Soft tissue swelling and probable old fracture. 2. No acute bony abnormality is definitely appreciated. Diagnostic code #2 Study was dictated in [place] Standard Time
== END 2019-08-05 15:08 | disposition home or self-care (01) ==
LOC: JD.ED 14:00
DX: S90.121A Contusion of right lesser toe(s) without damage to nail, initial encounter (principal); I10 Essential (primary) hypertension; I25.10 Atherosclerotic heart disease of native coronary artery without angina pectoris; I25.2 Old myocardial infarction; F41.9 Anxiety disorder, unspecified; F32.9 Major depressive disorder, single episode, unspecified; Z79.899 Other long term (current) drug therapy; E66.9 Obesity, unspecified; Z90.49 Acquired absence of other specified parts of digestive tract; Z98.84 Bariatric surgery status; Z90.710 Acquired absence of both cervix and uterus; Z87.891 Personal history of nicotine dependence; Z88.8 Allergy status to other drugs, medicaments and biological substances; Z79.82 Long term (current) use of aspirin; W22.8XXA Striking against or struck by other objects, initial encounter
CPT/HCPCS: 73660-26-T9; 73660-T9; 99283-25

== ENCOUNTER 2020-09-28 22:34 | Emergency (ER) | payer MEDICAID ==
[2020-09-28 22:43] VITALS: PULSE 99
[2020-09-28] MEDS ORDERED: cefTRIAXone 1 GM Vial IM STA (23:52)
--- NOTE | 2020-09-28 23:58 | EDM.PDOC ---
ED HPI GENERAL MEDICAL PROBLEM - General Chief Complaint: Bite:Animal, Insect Stated Complaint: DOG BITE Time Seen by Provider: 09/28/20 23:35 Source of Information: Reports: Patient History Limitations: Reports: No Limitations - History of Present Illness INITIAL COMMENTS - FREE TEXT/NARRATIVE: Mrs. Ervin is a very pleasant 50-year-old woman, who now presents to the ED with left third finger pain and swelling after it was bitten by her dog around 2245 last night. She states that the swelling developed almost immediately, then she noticed what she thought was some white drainage from some of the small lacerations to the finger this morning. She states that she has applied antibiotic ointment, and a Band-Aid, which had to be changed, because became too tight when the swelling increased. She has taken both acetaminophen and ibuprofen for discomfort. The patient states that she does not recall exactly when her last tetanus vaccination was, but she is confident that it was less than 10 years ago. Here in the ED, the patient's initial BP is found to be mildly elevated at 146/86, otherwise, she is hemodynamically stable, afebrile, saturating 97% on room air. Other than her left third finger injury, the patient denies having a recent fever, chills, sore throat, ear pain, nasal or sinus congestion, cough, dyspnea, chest pain, palpitations, nausea, vomiting, constipation, diarrhea, abdominal pain, urinary symptoms, recent weight gain or weight loss, recent bloody bowel movements or black bowel movements, recent joint aches, headaches, or rashes. The patient's PCP is Marta Ray NP. She states that she has already received an influenza vaccine this season. Left Middle Finger-Middle Pain Score (Numeric/FACES): 6 - Related Data Allergies Allergy/AdvReac Type Severity Reaction Status Date / Time hydromorphone HCl Allergy Intermediate Hives Verified 09/29/20 14:17 [From Dilaudid] meperidine HCl [From Demerol] Allergy Intermediate Hives Verified 09/29/20 14:17 Home Meds: Home Meds Ferrous Gluconate [Iron] 236 mg PO DAILY #30 tablet 06/10/18 [Rx] Albuterol Sulfate [Proair Hfa] 1 puff INH Q4HR PRN 01/21/19 [History] Amitriptyline [Elavil] 25 mg PO BEDTIME 01/21/19 [History] Aspirin [Adult Low Dose Aspirin EC] 81 mg PO DAILY 01/21/19 [History] LORazepam [Ativan] 1 mg PO BEDTIME 01/21/19 [History] Metoprolol Succinate 25 mg PO DAILY 01/21/19 [History] Venlafaxine [Effexor XR] 150 mg PO DAILY 01/21/19 [History] Venlafaxine [Effexor] 25 mg PO DAILY 01/21/19 [History] atorvaSTATin [Lipitor] 40 mg PO DAILY 01/21/19 [History] hydroCHLOROthiazide [Hydrochlorothiazide] 12.5 mg PO DAILY 01/21/19 [History] Amoxicillin/Clavulanate K [Augmentin 875-125 MG] 1 tab PO Q12H #20 tablet 09/28/20 [Rx] Past Medical History HEENT History: Reports: Impaired Vision Cardiovascular History: Reports: Hypertension, Other (See Below) (BLE varicose veins) Gastrointestinal History: Reports: Bowel Obstruction, GERD Musculoskeletal History: Reports: Fracture (left foot, right 5th toe) Psychiatric History: Reports: Anxiety, Depression Endocrine/Metabolic History: Reports: Obesity/BMI 30+ - Infectious Disease History Infectious Disease History: Reports: Chicken Pox - Past Surgical History Cardiovascular Surgical History: Reports: Other (See Below) (coronary angiogram Feb 2017 -> clean) GI Surgical History: Reports: Bariatric Procedure (gastric bypass 2000), Cholecystectomy (around 2000), Hernia, Abdominal, Lysis of Adhesions, Nadine Fundoplication (1998 or 1999) Other GI Surgeries/Procedures: obsruction, gastric bypass Female Surgical History: Reports: Section, Hysterectomy Musculoskeletal Surgical History: Reports: Carpal Tunnel (right only) Social & Family History - Tobacco Use Tobacco Use Status *Q: Former Tobacco User Years of Tobacco use: 7 Packs/Tins Daily: 1.5 Month/Year Tobacco Last Used: Quit 2009 Tobacco Use Comment: Smoked from 33 yrs old to 40 yrs old - Caffeine Use Caffeine Use: Reports: Coffee - Alcohol Use Alcohol Use History: Yes Alcohol Use Frequency: Rarely - Recreational Drug Use Recreational Drug Use: No - Living Situation & Occupation Living situation: Reports: , with Spouse 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 ED EXAM, ANIMAL BITE - Physical Exam Exam: See Below Exam Limited By: No Limitations General Appearance: Alert, WD/WN, No Apparent Distress Extremities: Other (There is modest swelling and mild erythema to the entirety of the left third finger, particularly distal to the PIP. There are several small lacerations/scratches to the finger, with some serosanguineous drainage from 2 or 3 of them. No purulent drainage seen. Neurovascular status of the left upp) Course - Vital Signs Last Recorded V/S: Last Vital Signs Temp 98.1 C H 09/29/20 00:34 Pulse 99 09/28/20 22:40 Resp 18 09/29/20 00:34 BP 139/81 09/29/20 00:34 Pulse Ox 98 09/29/20 00:34 - Re-Assessments/Exams Free Text/Narrative Re-Assessment/Exam: 09/28/20 23:53 As above, the patient was bitten on her left third finger just over 24 hours ago, and now presents with swelling and some serosanguineous drainage from numerous small lacerations to the finger. There is likely an underlying infection. The patient will be treated with 1 g of IM Rocephin before she is discharged home. I will submit a prescription for oral Augmentin. I encouraged her to follow-up with her PCP. Departure - Departure Time of Disposition: 23:55 Disposition: Home, Self-Care 01 Condition: Good Clinical Impression: Dog bite of middle finger, Infection of finger - Discharge Information *PRESCRIPTION DRUG MONITORING PROGRAM REVIEWED*: Not Applicable *COPY OF PRESCRIPTION DRUG MONITORING REPORT IN PATIENT DARIN: Not Applicable Prescriptions: Amoxicillin/Clavulanate K [Augmentin 875-125 MG] 1 tab PO Q12H #20 tablet Instructions: Animal Bite, Adult, [id number] Referrals: Marta Ray NP [Ordering Only Provider] - Forms: ED Department Discharge Additional Instructions: You were seen in the emergency room after developing swelling and drainage from your left middle finger, after it was bitten by her dog last night. Based on your history and physical examination, you likely have an infection of your finger. You were given an injection of the antibiotic Rocephin and started on the antibiotic Augmentin in the ER. A prescription for Augmentin has been sent to the [facility], located in the [employer] store. Take 1 tablet of Augmentin every 12 hours, starting tomorrow morning, , 09/29/2020, as prescribed. Finish the entire prescription unless told otherwise by a doctor. Keep your finger clean with ordinary soap and water when you bathe. We recommend against your applying an antibiotic ointment. You may apply a Band- Aid over the finger, but keep it loose. Do not apply a bandage tightly. We strongly recommend that you follow-up with your PCP, Marta Ray NP, at the next available appointment. If any other problems, please do not hesitate to return to the ER. Sepsis Event Note (ED) - Evaluation Sepsis Screening Result: No Definite Risk
[2020-09-28] MEDS ORDERED: Amoxicillin/Clavulanate K 875-125 MG Tab PO STA (23:59)
[2020-09-29 00:35] VITALS: BP 139/81
== END 2020-09-29 00:34 | disposition home or self-care (01) ==
LOC: JD.ED 22:34
DX: S61.253A Open bite of left middle finger without damage to nail, initial encounter (principal); L08.9 Local infection of the skin and subcutaneous tissue, unspecified; I10 Essential (primary) hypertension; E66.9 Obesity, unspecified; Z88.5 Allergy status to narcotic agent; Z87.891 Personal history of nicotine dependence; Z79.82 Long term (current) use of aspirin; Z79.899 Other long term (current) drug therapy; W54.0XXA Bitten by dog, initial encounter
CPT/HCPCS: 96372; 99283; A9270; J0696

== ENCOUNTER 2024-02-03 14:38 | Emergency (ER) | payer MEDICAID, OTHER ==
[2024-02-03] MEDS: Ketorolac 30 MG/ML SDV IM ONE (19:12)
[2024-02-03] MEDS: Dexamethasone 6 MG TABLET PO ONE (19:12)
[2024-02-03 19:16] VITALS: BP 124/85; PULSE 80
== END 2024-02-03 19:16 | disposition home or self-care (01) ==
LOC: JD.ED 14:38
DX: H66.92 Otitis media, unspecified, left ear (principal); I10 Essential (primary) hypertension; E66.9 Obesity, unspecified; Z68.42 Body mass index [BMI] 45.0-49.9, adult; Z90.49 Acquired absence of other specified parts of digestive tract; Z79.899 Other long term (current) drug therapy; Z79.82 Long term (current) use of aspirin; Z88.5 Allergy status to narcotic agent; Z88.8 Allergy status to other drugs, medicaments and biological substances
CPT/HCPCS: 96372; 99283; J1885; J8540